=== PATIENT | male | born 1945 | race African-American/Black ===

== ENCOUNTER 2016-08-14 05:00 | Inpatient (IN) ==
--- NOTE | 2016-08-13 09:28 | Cardiothoracic History & Phys ---
History of Present Illness Chief complaint: Chest tightness History of present illness: Mr. Gordon is a 71 year old male who presented to Dr. Page for evaluation of chest discomfort. He has a history of hypertension diabetes and hyperlipidemia and he reports several months of increasing symptoms of mild to moderate chest discomfort which seemed to occur with exertion. He is admitted for cardiac catheterization which demonstrated severe triple-vessel disease and the patient is to be admitted for bypass surgery. Past medical history: Hypertension hyperlipidemia and diabetes. Past surgical history: Appendectomy and tonsillectomy. Family history: There is a strong family history of cerebrovascular disease and a brother has had previous bypass surgery. Social history: Patient has been a smoker most of his life and smokes between one half pack and 1 pack of cigarettes per day. He drinks only occasionally. Review of systems is noncontributory to the present illness. Physical examination: Patient is well-developed well-nourished -[place] man in no acute distress. Examination of head eyes ears nose and throat show the pupils are equal and react to light and extraocular motions are intact. Examination of the oropharynx is benign. Examination of the neck shows no masses and there is no thyromegaly and there are no bruits. Examination of the chest is clear to percussion and auscultation. Examination of the heart shows a regular sinus rhythm without murmurs. Termination of the abdomen shows that it is soft and nontender and there are no masses or organomegaly palpable. Examination extremities shows no cyanosis or edema. Neurological examination is grossly within normal limits. Assessment: Three-vessel coronary artery disease. Plan: Coronary bypass surgery 08/15/2016 Home Medications Medication Instructions Recorded Confirmed Type Aspirin/Calcium Carbonate/Mag 325 mg PO DAILY 08/02/16 08/02/16 History [Aspirin Buffered 325 mg Tab] Carvedilol 12.5 mg PO BID 08/02/16 08/02/16 History Cholecalciferol (Vitamin D3) 1 capsule PO DIRECTED 08/02/16 08/02/16 History [Vitamin D3] Losartan Potassium [Cozaar] 100 mg PO DAILY 08/02/16 08/02/16 History Metformin HCl 2 tablet PO BEDTIME 08/02/16 08/02/16 History Naproxen Sodium [Aleve] 2 tablet PO DAILY 08/02/16 08/02/16 History Pioglitazone [Actos] 45 mg PO DAILY 08/02/16 08/02/16 History Rosuvastatin [Crestor] 20 mg PO BEDTIME 08/02/16 08/02/16 History amLODIPine [Norvasc] 10 mg PO DAILY 08/02/16 08/02/16 History glipiZIDE [Glucotrol] 20 mg PO DAILY 08/02/16 08/02/16 History hydroCHLOROthiazide 25 mg PO DAILY 08/02/16 08/02/16 History [Hydrochlorothiazide] Allergies Allergy/AdvReac Type Severity Reaction Status Date / Time JOSE LUIS Inhibitors Allergy Unknown Verified 08/02/16 06:10 Medical,Surgical,& Family Hx - Medical History Neurology: No history of: Seizures - Social History Smoking Status: Current every day smoker
[2016-08-14] MEDS ORDERED: DEXTROSE 50% 25 GM/50 ML VIAL IV PRN (09:42)
[2016-08-14] MEDS ORDERED: GLUCAGON 1 MG VIAL IM PRN (09:42)
[2016-08-14] MEDS: CARVEDILOL 12.5 MG TABLET PO SCH ×2 (12:23→21:27)
[2016-08-14] MEDS: ROSUVASTATIN 20 MG TABLET PO SCH ×2 (12:37→21:28)
[2016-08-14] MEDS: glipiZIDE 10 MG TABLET PO SCH (12:39)
[2016-08-14] MEDS: PIOGLITAZONE 45 MG TABLET PO SCH (12:39)
[2016-08-14] MEDS: CHLORHEXIDINE 0.12% ORAL RINSE 60 ML BOTTLE SWISH/SPIT SCH ×3 (12:39→21:28)
[2016-08-14] MEDS: ASPIRIN EC 325 MG TABLET PO SCH (12:40)
[2016-08-14] MEDS: amLODIPine 10 MG TABLET PO SCH (12:42)
[2016-08-14] MEDS: hydroCHLOROthiazide 25 MG TABLET PO SCH (12:42)
[2016-08-14] MEDS: LOSARTAN 50 MG TABLET PO SCH (12:42)
[2016-08-14] MEDS: NAPROXEN 250 MG TABLET PO SCH (12:42)
[2016-08-14 12:45] LABS: Basophils % 0.4 % (0.0-0.8); Eosinophils # 0.2 10*3/uL (0.0-0.87); Eosinophils % 2.6 % (0.00-10.9); Hematocrit 37.1 VOL% (42.0-52.0); Hemoglobin 12.3 GM/DL (14.0-18.0); Immature Granulocytes % 0.4 %; Immature Granulocytes Absolute 0.03 #; Lymphocytes # 1.9 10*3/uL (1.4-4.0); Lymphocytes % 26.3 % (21.2-54.2); Mean Corpuscular HGB Conc 33.2 GM/DL (32-36); Mean Corpuscular Hemoglobin 30 PG (27-34); Mean Corpuscular Volume 89.8 FL (87-102); Mean Platelet Volume 9.4 FL (9.6-12.0); Monocytes # 0.6 10*3/uL (0.11-0.8); Monocytes % 8.1 % (1.7-12.7); Neutrophils # 4.5 10*3/uL (1.4-7.4); Neutrophils % 62.2 % (38.7-73.9); Platelet Count 235 T/CUMM (130-400); Red Blood Count 4.13 MC/CUMM (3.8-5.5); Red Cell Distribution Width 16.1 % (9.3-17.3); White Blood Count 7.3 T/CUMM (4-12)
[2016-08-14 13:15] LABS: Albumin 3.8 G/DL (3.4-5.0); Bilirubin,Total 0.4 MG/DL (0.2-1.0); Calcium 9.1 MG/DL (8.5-10.1); Osmolality,Calculated 289.1 MOS/KG (273-304); Potassium 3.6 MMOL/L (3.5-5.1); Total Protein 6.7 G/DL (6.4-8.3)
[2016-08-14] MEDS ORDERED: CLORAZEPATE 3.75 MG TABLET PO PRN (13:26)
--- NOTE | 2016-08-14 13:56 | XRay Report ---
Referring Physician: Timothy Anderson Exam: XR chest 1V portable Date: August 14, 2016 at 10:56 AM Reason: CAD Comparison: Chest one view portable August 02, 2016 Findings: The cardiac silhouette is normal in size. No focal consolidation, pneumothorax or pleural effusion is identified. No acute osseous process is seen. Impression: No acute cardiopulmonary process is identified. PROCEDURE INTERPRETED AT [facility] DEPARTMENT OF RADIOLOGY Final Report Signed by: Dr. Jacques Dial
[2016-08-14] MEDS ORDERED: CLORAZEPATE 7.5 MG TABLET PO ONE (14:00)
--- NOTE | 2016-08-14 15:55 | Hospitalist Consult Note ---
Assessment and Plan - Time spent with patient Time spent with patient: Less than 30 minutes (1) Coronary artery disease Status: Acute Assessment and plan: Mr. Han Gordon is a pleasant 71-year-old -[place] male with history of diabetes, hypertension, dyslipidemia admitted for CABG in the morning by Dr. Anderson. Patient had chest pain on exertion and his workup showed triple-vessel disease. Hospitalist has been consulted to assist with medical management. At this time patient's diabetes is managed with p.o. medicines. These will be held for surgery and put on sliding scale insulin. Will continue to monitor his blood sugars and blood pressures postoperatively. I discussed patient's care with Dr. Mckee the consulting hospitalist Current Visit: Yes (2) Hypertension Status: Acute Current Visit: Yes (3) Diabetes Status: Acute Current Visit: Yes (4) Dyslipidemia Status: Acute Current Visit: Yes History of Present Illness - Data of Consult Patient: new to practice Consult date: 08/14/16 Requesting Physician: Timothy Anderson - Consult Narrative Reason for consult: Medical management History of present illness: Mr. Gordon is a 71-year-old -[place] male with history of hypertension, dyslipidemia, and diabetes admitted by Dr. Anderson for bypass surgery in the a.m. Patient states in June he was working in his yard and he had chest pain with exertion. He went to see his nurse practitioner in [place] and she sent him to Dr. Page for heart workup. He had a heart cath that showed triple- vessel disease. He was referred to Dr. Anderson for bypass surgery. Patient denies headache, chest pain, shortness of breath, abdominal pain, constipation or diarrhea, or lower extremity edema. Patient patient states he has not done anything to exert himself due to the chest pain in the last month or so. Patient's preoperative labs are showing elevated blood sugars in the high 100s. Otherwise they are fairly normal. I discussed patient's care with Dr. Mckee , the consulting hospitalist. CC: Timothy Anderson MD - Home Medications and Allergies Home Medications: Home Medications Medication Instructions Recorded Confirmed Type Aspirin/Calcium Carbonate/Mag 325 mg PO DAILY 08/02/16 08/14/16 History [Aspirin Buffered 325 mg Tab] Carvedilol 12.5 mg PO BID 08/02/16 08/14/16 History Cholecalciferol (Vitamin D3) 1 capsule PO DIRECTED 08/02/16 08/14/16 History [Vitamin D3] Losartan Potassium [Cozaar] 100 mg PO DAILY 08/02/16 08/14/16 History Metformin HCl 2 tablet PO BEDTIME 08/02/16 08/14/16 History Naproxen Sodium [Aleve] 2 tablet PO DAILY 08/02/16 08/14/16 History Pioglitazone [Actos] 45 mg PO DAILY 08/02/16 08/14/16 History Rosuvastatin [Crestor] 20 mg PO BEDTIME 08/02/16 08/14/16 History amLODIPine [Norvasc] 10 mg PO DAILY 08/02/16 08/14/16 History glipiZIDE [Glucotrol] 20 mg PO DAILY 08/02/16 08/14/16 History hydroCHLOROthiazide 25 mg PO DAILY 08/02/16 08/14/16 History [Hydrochlorothiazide] Allergies/Adverse Reactions: Allergies Allergy/AdvReac Type Severity Reaction Status Date / Time JOSE LUIS Inhibitors Allergy Unknown Verified 08/02/16 06:10 Medical,Surgical,& Family Hx - Medical History Cardio: History of: Hypertension Neurology: No history of: Seizures HEENT: History of: Eye Problem (Left eye surgery) Endocrine: History of: Diabetes Mellitus (NIDDM) Rheumatology: No history of;: Fibromyalgia, Gout, Myasthenia Gravis, Psoriasis, Rheumatoid Arthritis, Sjogrens, Systemic Lupus Erythematosus, Rheumatological Problems Respiratory: No history of: Asthma, Bronchitis, COPD, Intubation, Obstructive Sleep Apnea , Pulmonary Embolism, Pulmonary Hypertension, Pneumonia, Lung Cancer, Respiratory Problems Renal: No history of: Renal (Kidney) Cancer, Dialysis, Renal Failure, Renal Problems Genitourinary: No history of: Bladder Problem, Kidney Stones, Prostate Problems, Recurring Urinary Tract Infections, Genitourinary Cancer, Problems Musculoskeletal: No history of: Amputation, Back/Neck Problems, Herniated Disk, Osteoporosis, Musculoskeletal Cancer, Musculoskeletal Problems Hematology: No history of: Blood Transfusion Reaction Other: History of: Anaphylaxis (Tongue swelling related to BP meds 15 years ago) No history of: Anesthesia Reactions, Cancer, Eczema, HIV, Malignant Hyperthermia, MRSA, Vancomycin-Resistant Enterococci, Skin Problems, Miscellaneous Medical Problems - Surgical History Cardiac Surgeries: Sugical HX of: Cardiac Catheterization Thoracic Surgeries: Patient denies;: Organ Transplant, Lobectomy HEENT Surgeries: Surgical HX of: Eye Surgery (cataract surgery), Tonsilectomy & Adenoidectomy Abdominal Surgeries: Surgical HX of: Appendectomy, Colonoscopy Reproductive Surgeries: Patient denies;: Genitourinary Surgery Orthopedic Surgeries: Surgical HX of;: Orthopedic Surgery (Left femur surgery) Patient denies;: Implanted Devices, Spinal Surgery, Total Hip Replacement, Total Knee Replacement - Family History Family History: Reports;: Family Diabetes, Family Heart Disease, Family Stroke ( mother and father) Denies;: Family Anesthesia Reaction, Family Cancer, Family Hematology, Family Hypertension, Family Psychiatric Problems, Additional Family History - Social History Smoking Status: Current every day smoker Frequency of Alcohol Use: Occasionally Type of Drug Use: None Review of systems: A complete 10 system review of systems was obtained and pertinent negatives and positives are in HPI. Exam - Constitutional Vitals: Period Temp Pulse Resp BP Sys/Toussaint Pulse Ox Last 24 Hr 97.8 F 67-71 13-20 163-182/76-99 96-98 Exam: Constitutional System: No distress. No tremulousness. Head: Normocephalic, atraumatic. Ears, Nose and Throat System: No evidence of Otitis or Mastoiditis. No epistaxis or discharge Eyes System: Pupils equal, round, and reactive. Extraocular muscles intact. Neck: Supple, without adenopathy, No jugular venous distention. No thyromegaly, neck mass, or prior surgery apparent. Respiratory System: Chest clear to auscultation. Cardiovascular System: Heart with regular rate and rhythm. No murmur. GI System: Abdomen soft, nontender. Normo active bowel sounds present. Musculoskeletal System: limbs with no pedal edema. Full distal pulses. Neurological System: No discernable sensory deficit. No aphasia Psychiatric System: Conversation is rational Results - Labs CBC & BMP: 08/14/16 12:35 08/14/16 12:35 Lab Results: I have reviewed the past 24 hour labs - EKG EKG results: sinus rhythm - Diagnostic Findings Procedure: Chest x-ray: report reviewed by me (No acute process identified) Quality Measures - VTE Contraindication to Pharmacological VTE Prophylaxis: High Risk of Bleeding
[2016-08-14] MEDS: CHLORHEXIDINE 4% SOLN 118 ML BOTTLE TOP SCH ×2 (17:00→21:30)
[2016-08-14] MEDS: INSULIN LISPRO 100 UNIT/ML SUBCUT SCH (17:05)
[2016-08-14 18:36] LABS: ABG Base Excess 2.7 MMOL/L (-2.5-2.5); ABG HCO3 26.7 MMOL/L (20-26); ABG Oxygen Saturation 95.5 % (95-100); ABG PCO2 44.2 MM HG (35-48); ABG PH 7.407 (7.35-7.45); ABG PO2 79.6 MM HG (80-95); ABG TCO2 24.5 MMOL/L (23-27); Allen Test Positive; Pt O2 Delivery Device Room Air
[2016-08-15] MEDS ORDERED: FAMOTIDINE 20 MG TABLET PO ONE (04:19)
[2016-08-15] MEDS ORDERED: LORazepam 1 MG TABLET PO ONE (04:19)
[2016-08-15] MEDS ORDERED: PAPAVERINE 60 MG/2 ML VIAL ONE (04:35)
[2016-08-15] MEDS ORDERED: VANCOMYCIN 1,000 MG VIAL ONE (04:35)
[2016-08-15] MEDS ORDERED: CEFUROXIME INJ 1,500 MG in SODIUM CHLORIDE 0.9% 100 ML IV ONE (06:00)
[2016-08-15] MEDS ORDERED: MINERAL OIL/PETROLATUM OPH OINT 3.5 GM TUBE ONE (06:40)
[2016-08-15] MEDS ORDERED: NITROGLYCERIN 50 MG/250 ML BOTTLE IV ONE (06:40)
[2016-08-15] MEDS ORDERED: CALCIUM CHLORIDE 1,000 MG/10 ML SYRINGE IV ONE ×2 (06:40→07:44)
[2016-08-15] MEDS ORDERED: PHENYLEPHRINE 20 MG/250 ML PREMIX IV ONE (06:40)
[2016-08-15] MEDS ORDERED: AMINOCAPROIC ACID 5,000 MG/20 ML VIAL IV ONE (06:40)
[2016-08-15] MEDS ORDERED: HEPARIN/NACL 0.9% 2 UNITS/ML 500 ML IV ONE (06:40)
[2016-08-15 07:33] LABS: ABG Base Excess 1.8 MMOL/L (-2.5-2.5); ABG HCO3 25.6 MMOL/L (20-26); ABG Oxygen Saturation 99.3 % (95-100); ABG PCO2 37.1 MM HG (35-48); ABG PH 7.456 (7.35-7.45); ABG PO2 477.4 MM HG (80-95); ABG TCO2 26.7 MMOL/L (23-27); Glucose Heart Surgery 137 MG/DL (74-106); Hemoglobin Heart Surgery 11.4 G/DL (14.0-18.0); Ionized Calcium Arterial 1.12 MMOL/L (1.21-1.46); PCO2 Patient Temp Arterial 37.1 MMHG; PH Patient Temp Arterial 7.456; PO2 Patient Temp Arterial 477.4 MM HG; Patient Temperature 37 CELCIUS; Potassium Heart/CVR 3.2 MMOL/L (3.5-5.1); Sodium Heart/CVR 135 MMOL/L (135-145)
[2016-08-15] MEDS ORDERED: PHENYLEPHRINE DRIP 40 MG/250 ML PREMIX IV ONE (07:44)
[2016-08-15] MEDS ORDERED: NITROPRUSSIDE 50 MG/2 ML VIAL ONE (07:44)
[2016-08-15] MEDS ORDERED: POTASSIUM CHLORIDE RIDER 100 ML IV ONE (07:44)
[2016-08-15] MEDS ORDERED: ALBUMIN 5% 12.5 GM/250 ML VIAL IV ONE ×2 (07:47)
[2016-08-15 08:02] LABS: Apearance,Urine CLEAR (Clear); Bilirubin,Urine Negative (Negative); Blood, Urine Negative (Negative); Glucose,Urine (UA) Negative (Negative); Ketones,Urine Negative (Negative); Mucus,Urine Occasional /LPF (Occasional); Nitrite,Urine Negative (Negative); Protein,Urine Negative; RBC,Urine 1 /HPF (0-4); Squamous Epithelial Cell,Urine Occasional /HPF (0-10); Urine Color Yellow (Yellow); Urine Specific Gravity 1.012 (1.001-1.035); Urine Urobilinogen < 2.0 EU/DL (0.2-1.0); WBC,Urine <1 /HPF (0-6)
[2016-08-15] MEDS ORDERED: SODIUM BICARBONATE 50 MEQ/50 ML SYRINGE IV ONE ×2 (08:21→10:10)
--- NOTE | 2016-08-15 08:32 | Anesthesia ---
Anesthesia Procedures - Arterial Line Consent obtained arterial line: verbal consent Time out performed arterial line: Yes Size (Gauge): 20 Technique used arterial line: guide wire technique Post-Procedure: line sutured into place, dry sterile dressing placed Patient tolerated procedure arterial line: well Complications art line: none Site: left, radial (dr andrea)
--- NOTE | 2016-08-15 08:33 | Anesthesia ---
Anesthesia Procedures - Central Venous Insert Monitors Applied: pulse oximetry, EKG, BP cuff, oxygen via MSBT: pulse oximetry, EKG, BP cuff, oxygen via Procedure: after sterile technique was performed as outlined above, vital signs were stable throughout procedure, no apparent complications were noted, CXR to be obtained and read, , ultrasound guidance was used to identify vessel, 1.5 % lidocaine used to numb skin, 18G introducer needle was passed into vessel under direct visualizatio, 16G introducer needle was passed into vessel under direct visualizatio, 7fr double lumen catheter was passed over guidewire without difficulty, triple lumen catheter was passed over guidewire without difficulty, catheter sutured into place and the ports flushed with NS/hepflush, sterlie dressing applied including the antibiotic disc Ultrasound used: identify patency vessel, visualize needle entry to vessel Vein Cannulated: right internal juglar, left internal juglar (attempted r IJ, easy puncture with blood return, unable to pass guie wire, to ;left side with postive results via dr andrea)
[2016-08-15 08:59] LABS: Hematocrit Heart Surgery 22.9 PERCENT (42-52); Hemoglobin Heart Surgery 7.3 G/DL (14.0-18.0); PH Patient Temp Venous 7.453; Potassium Heart/CVR 3.8 MMOL/L (3.5-5.1); VBG Base Excess 1.5 MEQ/L (0-4); VBG HCO3 25.5 MEQ/L (24-28); VBG Oxygen Saturation 75.8 %; VBG PCO2 39.7 MMHG (41-51); VBG PH 7.424; VBG PO2 41.3 MMHG (17-40)
[2016-08-15 09:30] LABS: Hematocrit Heart Surgery 25.7 PERCENT (42-52); Hemoglobin Heart Surgery 8.3 G/DL (14.0-18.0); PCO2 Patient Temp Venous 38.6 MM HG; PH Patient Temp Venous 7.433; Potassium Heart/CVR 3.8 MMOL/L (3.5-5.1); VBG Base Excess 1.5 MEQ/L (0-4); VBG HCO3 25.4 MEQ/L (24-28); VBG Oxygen Saturation 67.3 %; VBG PCO2 38.6 MMHG (41-51); VBG PH 7.433
[2016-08-15] MEDS: SODIUM CHLORIDE 0.9% 1,000 ML IV SCH ×2 (09:43→09:46)
[2016-08-15] MEDS: INSULIN LISPRO 100 UNIT/ML SUBCUT SCH (09:44)
[2016-08-15] MEDS: CARVEDILOL 12.5 MG TABLET PO SCH (09:44)
[2016-08-15] MEDS: ASPIRIN EC 325 MG TABLET PO SCH (09:44)
[2016-08-15] MEDS: PIOGLITAZONE 45 MG TABLET PO SCH (09:44)
[2016-08-15] MEDS: glipiZIDE 10 MG TABLET PO SCH (09:44)
[2016-08-15] MEDS: LOSARTAN 50 MG TABLET PO SCH (09:44)
[2016-08-15] MEDS: CHLORHEXIDINE 0.12% ORAL RINSE 60 ML BOTTLE SWISH/SPIT SCH ×2 (09:45→21:24)
[2016-08-15] MEDS: hydroCHLOROthiazide 25 MG TABLET PO SCH (09:45)
[2016-08-15] MEDS: CHLORHEXIDINE 4% SOLN 118 ML BOTTLE TOP SCH (09:45)
[2016-08-15] MEDS: NAPROXEN 250 MG TABLET PO SCH (09:45)
[2016-08-15] MEDS: amLODIPine 10 MG TABLET PO SCH (09:45)
[2016-08-15] MEDS ORDERED: DEXTROSE 5% KCL 20 MEQ 20 MEQ/1,000 ML BAG IV ONE (10:10)
[2016-08-15] MEDS ORDERED: PHENYLEPHRINE DRIP 20 MG/250 ML PREMIX IV ONE (10:10)
[2016-08-15] MEDS ORDERED: ALBUMIN 25% 25 GM/100 ML VIAL IV ONE (10:10)
[2016-08-15] MEDS ORDERED: HEPARIN 10,000 UNIT/10 ML VIAL ONE (10:11)
[2016-08-15] MEDS ORDERED: PROTAMINE SULFATE 250 MG/25 ML VIAL IV ONE (10:11)
[2016-08-15] MEDS ORDERED: MANNITOL 12.5 GM/50 ML VIAL IV ONE (10:11)
[2016-08-15] MEDS ORDERED: methylPREDNISolone SOD SUC 1,000 MG/8 ML VIAL ONE (10:11)
[2016-08-15] MEDS ORDERED: FUROSEMIDE 20 MG/2 ML VIAL ONE (10:11)
[2016-08-15] MEDS ORDERED: MAGNESIUM SULFATE 1 GM/2 ML VIAL ONE (10:11)
[2016-08-15] MEDS ORDERED: PROTAMINE SULFATE 50 MG/5 ML VIAL IV ONE ×2 (10:12→11:20)
[2016-08-15] MEDS ORDERED: POTASSIUM CHLORIDE 20 MEQ/10 ML VIAL ONE (10:12)
[2016-08-15 10:24] LABS: ABG Base Excess 0.7 MMOL/L (-2.5-2.5); ABG HCO3 25.1 MMOL/L (20-26); ABG PCO2 34.5 MM HG (35-48); ABG PH 7.455 (7.35-7.45); ABG TCO2 22.5 MMOL/L (23-27); Glucose Heart Surgery 214 MG/DL (74-106); Hematocrit Heart Surgery 25.7 PERCENT (42-52); Hemoglobin Heart Surgery 8.3 G/DL (14.0-18.0); Ionized Calcium Arterial 1.16 MMOL/L (1.21-1.46); PCO2 Patient Temp Arterial 34.5 MMHG; PH Patient Temp Arterial 7.455; Patient Temperature 37 CELCIUS; Potassium Heart/CVR 3.6 MMOL/L (3.5-5.1); Sodium Heart/CVR 134 MMOL/L (135-145)
[2016-08-15] MEDS ORDERED: NITROPRUSSIDE 100 MG in DEXTROSE 5% 250 ML IV PRN (11:06)
[2016-08-15] MEDS ORDERED: MAGNESIUM SULF RIDER 2 GM in PREMIX 1 EACH IV PRN (11:06)
[2016-08-15] MEDS ORDERED: CALCIUM CHLORIDE 1,000 MG/10 ML SYRINGE IV PRN (11:06)
[2016-08-15] MEDS ORDERED: DEXTROSE 50% 25 GM/50 ML VIAL IV PRN ×2 (11:06)
[2016-08-15] MEDS ORDERED: MAGNESIUM SULF RIDER 4 GM in PREMIX 1 EACH IV PRN (11:06)
[2016-08-15] MEDS ORDERED: INSULIN REGULAR 100 UNIT/ML IV ONE (11:06)
[2016-08-15] MEDS ORDERED: ONDANSETRON 4 MG/2 ML VIAL IV PRN (11:06)
[2016-08-15] MEDS ORDERED: VECURONIUM 10 MG VIAL IV PRN ×2 (11:06)
[2016-08-15] MEDS ORDERED: PHENYLEPHRINE DRIP 40 MG/250 ML PREMIX IV PRN (11:06)
[2016-08-15] MEDS ORDERED: INSULIN REGULAR 100 UNIT/ML IV PRN (11:06)
[2016-08-15] MEDS ORDERED: LACTATED RINGERS 250 ML IV PRN (11:06)
[2016-08-15] MEDS ORDERED: ACETAMINOPHEN 650 MG SUPP RECTAL PRN (11:06)
[2016-08-15] MEDS ORDERED: MIDAZOLAM 10 MG/2 ML VIAL IV PRN (11:06)
[2016-08-15] MEDS ORDERED: MORPHINE 10 MG/1 ML VIAL IV PRN (11:06)
[2016-08-15] MEDS ORDERED: MORPHINE 2 MG/1 ML SYRINGE IV PRN (11:06)
[2016-08-15] MEDS ORDERED: MIDAZOLAM 2 MG/2 ML VIAL IV PRN (11:06)
--- NOTE | 2016-08-15 11:12 | Operative Note ---
Date of procedure: 08/15/16 Pre-op diagnosis: coronary artery disease Post-op diagnosis: same Procedure: Procedure: Coronary bypass grafting 2 with the left internal mammary grafted anterior descending coronary artery and saphenous vein grafts to the ramus intermedius coronary artery. Findings: Patient is 71-year-old man who underwent cardiac catheterization as part of an evaluation for chest discomfort and was found to have triple-vessel coronary disease. The time of surgery left ventricular function was noted to be normal and the distal circumflex and the right coronary artery were both totally occluded and not felt suitable for grafting. The graft was placed to a large ramus intermedius which was a normal vessel at the site of anastomosis and to a moderately sized LAD which had a fair amount of disease at the site of anastomosis. Patient tolerated procedure well was returned recovery in satisfactory condition. Procedure: Patient brought to the operating room placed on the operating table in the supine position. After satisfactory induction of general anesthesia the chest abdomen and legs were prepped and draped in sterile fashion. Greater saphenous vein was harvested from the left lower leg and prepared as an arterial graft. Incision leg was closed with 3-0 subcutaneous Monopril and 3-0 subcuticular Monocryl. Standard sternotomy incision was made and the sternum was divided and the heart suspended in a pericardial cradle. The left internal mammary artery was dissected free from its position in the anterior chest wall and prepared as an arterial graft. Patient was prepared for cardiopulmonary bypass with systemic heparinization and cannulation of the ascending aorta and right atrium. Cardiopulmonary bypass was begun the aorta was crossclamped and the heart arrested with cardioplegia solution injected into the aortic root. The heart was protected during the period of crossclamping with topical saline slush. Distal anastomoses were constructed as noted above and then the aorta was unclamped reestablishing cardiac action. And it anastomosis was constructed between the ascending aorta and the inflow end of the saphenous vein graft. Following this the patient was weaned from cardiopulmonary bypass without difficulty. Heparin effect was reversed with protamine and decannulation carried out in the defects in the ascending aorta and right atrium closed with 3-0 Prolene. The operative field was inspected for hemostasis when this was considered adequate the incision was closed with interrupted stainless steel wire and the sternum and 0 Monopril and the presternal fascia. Skin was closed with 3-0 subcuticular Monocryl. 2 chest tubes were left in the anterior mediastinum and brought out through separate stab incisions. Sterile dressings were applied and the patient was returned recovery in satisfactory condition. Anesthesia: ADAIR Surgeon / Physician: Timothy Anderson Estimated blood loss: other (unable to determine because of cardiopulmonary bypass) Condition: stable Disposition: ICU Results - Labs CBC & BMP: 08/15/16 10:07 08/14/16 12:35 Discharge Plan - Discharge Medications No Action Metformin HCl 2 tablet PO BEDTIME glipiZIDE [Glucotrol] 20 mg PO DAILY Naproxen Sodium [Aleve] 2 tablet PO DAILY Rosuvastatin [Crestor] 20 mg PO BEDTIME Carvedilol 12.5 mg PO BID Pioglitazone [Actos] 45 mg PO DAILY hydroCHLOROthiazide [Hydrochlorothiazide] 25 mg PO DAILY Losartan Potassium [Cozaar] 100 mg PO DAILY Aspirin/Calcium Carbonate/Mag [Aspirin Buffered 325 mg Tab] 325 mg PO DAILY amLODIPine [Norvasc] 10 mg PO DAILY Cholecalciferol (Vitamin D3) [Vitamin D3] 1 capsule PO DIRECTED - Follow Up or Referral - Forms/Instructions
[2016-08-15] MEDS ORDERED: SEVOFLURANE 1 UNIT/15 MINUTE INH ONE (11:13)
[2016-08-15] MEDS ORDERED: SODIUM CHLORIDE 0.9% 250 ML IV ONE (11:14)
[2016-08-15] MEDS ORDERED: SODIUM CHLORIDE 0.9% 1,000 ML IV ONE (11:14)
[2016-08-15] MEDS ORDERED: SUFentanil 250 MCG/5 ML AMP ONE (11:14)
[2016-08-15] MEDS ORDERED: SODIUM CHLORIDE 0.45% 1,000 ML IV SCH ×2 (11:30)
[2016-08-15] MEDS ORDERED: INSULIN REGULAR DRIP 100 ML IV SCH (11:30)
[2016-08-15 11:35] LABS: ABG Base Excess 0.9 MMOL/L (-2.5-2.5); ABG HCO3 25.3 MMOL/L (20-26); ABG Oxygen Saturation 98.9 % (95-100); ABG PH 7.437 (7.35-7.45); ABG TCO2 22.7 MMOL/L (23-27); Glucose Heart Surgery 206 MG/DL (74-106); Hematocrit Heart Surgery 30.6 PERCENT (42-52); Hemoglobin Heart Surgery 9.9 G/DL (14.0-18.0); Potassium Heart/CVR 3.6 MMOL/L (3.5-5.1)
[2016-08-15 11:44] LABS: Basophils % 0.2 % (0.0-0.8); Eosinophils # 0.2 10*3/uL (0.0-0.87); Eosinophils % 1.8 % (0.00-10.9); Hematocrit 29.8 VOL% (42.0-52.0); Immature Granulocytes % 0.6 %; Immature Granulocytes Absolute 0.05 #; Lymphocytes # 1.6 10*3/uL (1.4-4.0); Lymphocytes % 18.9 % (21.2-54.2); Mean Corpuscular HGB Conc 32.6 GM/DL (32-36); Mean Corpuscular Hemoglobin 30 PG (27-34); Mean Corpuscular Volume 91.7 FL (87-102); Mean Platelet Volume 9.8 FL (9.6-12.0); Monocytes # 0.6 10*3/uL (0.11-0.8); Monocytes % 6.7 % (1.7-12.7); Neutrophils # 5.9 10*3/uL (1.4-7.4); Neutrophils % 71.8 % (38.7-73.9); Red Cell Distribution Width 16.1 % (9.3-17.3); White Blood Count 8.2 T/CUMM (4-12)
[2016-08-15 11:46] LABS: Hemoglobin 9.7 GM/DL (14.0-18.0); Platelet Count 150 T/CUMM (130-400); Red Blood Count 3.25 MC/CUMM (3.8-5.5)
[2016-08-15] MEDS: KETOROLAC 30 MG/1 ML VIAL IV SCH ×2 (11:55→17:32)
[2016-08-15 11:59] LABS: INR 1.3; PT Patient Result 13.5 SECS; Partial Thromboplastin Time 30.6 SECS (0-40)
[2016-08-15] MEDS: LACTATED RINGERS 1,000 ML IV PRN ×2 (12:00→15:01)
[2016-08-15 12:19] LABS: Albumin 3.3 G/DL (3.4-5.0); Bilirubin,Total 0.7 MG/DL (0.2-1.0); Magnesium 2.2 MG/DL (1.8-2.4); Osmolality,Calculated 282.7 MOS/KG (273-304); Potassium 3.7 MMOL/L (3.5-5.1); Total Protein 5.4 G/DL (6.4-8.3)
[2016-08-15] MEDS: ALBUMIN 5% 12.5 GM in PREMIX 1 EACH IV PRN ×4 (12:37→18:30)
[2016-08-15] MEDS: SODIUM CHLORIDE 0.9% 250 ML IV SCH (12:40)
[2016-08-15] MEDS: POTASSIUM CHLORIDE RIDER 20 MEQ in PREMIX 1 EACH IV PRN ×5 (12:40→23:52)
[2016-08-15 12:41] LABS: Troponin I Only 3.98 NG/ML (0.00-0.045)
[2016-08-15] MEDS: POTASSIUM CHLORIDE RIDER 10 MEQ in PREMIX 1 EACH IV PRN ×2 (12:41→16:50)
--- NOTE | 2016-08-15 12:43 | XRay Report ---
XR chest 1V portable Indication: Line placement Comparison: Chest x-ray dated August 14, 2016 Technique: Single frontal view of the chest Findings: Endotracheal tube tip at the clavicular level. [place] catheter noted. Left-sided central venous catheter tip may be within the azygos vein. Interval sternotomy. Mediastinal drains noted. Mild left basilar atelectasis and possible pleural fluid. Osseous structures appear grossly unchanged. IMPRESSION: Left-sided central venous catheter tip may be within the azygos vein. Interval sternotomy. Mild left basilar atelectasis and possible pleural fluid. PROCEDURE INTERPRETED AT [facility] DEPARTMENT OF RADIOLOGY Final Report Signed by: Dr Russ Persaud
[2016-08-15 14:08] LABS: ABG Base Excess 1.3 MMOL/L (-2.5-2.5); ABG HCO3 25.3 MMOL/L (20-26); ABG Oxygen Saturation 97.1 % (95-100); ABG PCO2 37.9 MM HG (35-48); ABG PH 7.443 (7.35-7.45); ABG PO2 100.7 MM HG (80-95); ABG TCO2 26.5 MMOL/L (23-27); Glucose Heart Surgery 109 MG/DL (74-106); Hemoglobin Heart Surgery 11.3 G/DL (14.0-18.0); Potassium Heart/CVR 3.1 MMOL/L (3.5-5.1)
[2016-08-15 16:04] LABS: ABG Base Excess 0.3 MMOL/L (-2.5-2.5); ABG HCO3 24.8 MMOL/L (20-26); ABG Oxygen Saturation 96.9 % (95-100); ABG PCO2 39.9 MM HG (35-48); ABG PH 7.412 (7.35-7.45); ABG PO2 100.9 MM HG (80-95); ABG TCO2 26.1 MMOL/L (23-27); Glucose Heart Surgery 97 MG/DL (74-106); Hemoglobin Heart Surgery 10.7 G/DL (14.0-18.0); Potassium Heart/CVR 3.7 MMOL/L (3.5-5.1)
[2016-08-15 18:12] LABS: ABG Base Excess -1.1 MMOL/L (-2.5-2.5); ABG HCO3 23.5 MMOL/L (20-26); ABG PCO2 38.6 MM HG (35-48); ABG PH 7.394 (7.35-7.45); ABG PO2 91.7 MM HG (80-95); ABG TCO2 21.6 MMOL/L (23-27); Glucose Heart Surgery 118 MG/DL (74-106); Hemoglobin Heart Surgery 9.7 G/DL (14.0-18.0)
[2016-08-15] MEDS: CEFUROXIME INJ 1,500 MG in SODIUM CHLORIDE 0.9% 100 ML IV SCH (18:26)
[2016-08-15] MEDS ORDERED: FUROSEMIDE 40 MG/4 ML VIAL IV PRN (18:50)
[2016-08-15 19:43] LABS: ABG HCO3 23.6 MMOL/L (20-26); ABG Oxygen Saturation 97.9 % (95-100); ABG PCO2 37.5 MM HG (35-48); ABG PH 7.404 (7.35-7.45); ABG TCO2 21.5 MMOL/L (23-27); Glucose Heart Surgery 120 MG/DL (74-106); Hematocrit Heart Surgery 28.8 PERCENT (42-52); Hemoglobin Heart Surgery 9.3 G/DL (14.0-18.0); Potassium Heart/CVR 3.9 MMOL/L (3.5-5.1)
[2016-08-15 20:30] LABS: Troponin I Only 8.93 NG/ML (0.00-0.045)
[2016-08-15 23:47] LABS: ABG Base Excess -2.2 MMOL/L (-2.5-2.5); ABG HCO3 22.5 MMOL/L (20-26); ABG Oxygen Saturation 97.2 % (95-100); ABG PCO2 41.5 MM HG (35-48); ABG PH 7.355 (7.35-7.45); ABG TCO2 21.1 MMOL/L (23-27); Glucose Heart Surgery 131 MG/DL (74-106); Hematocrit Heart Surgery 32.5 PERCENT (42-52); Hemoglobin Heart Surgery 10.5 G/DL (14.0-18.0); Potassium Heart/CVR 3.7 MMOL/L (3.5-5.1)
[2016-08-16] MEDS: POTASSIUM CHLORIDE RIDER 10 MEQ in PREMIX 1 EACH IV PRN (00:32)
[2016-08-16] MEDS: KETOROLAC 30 MG/1 ML VIAL IV SCH ×2 (00:34→05:05)
[2016-08-16 02:07] LABS: ABG Base Excess -2.7 MMOL/L (-2.5-2.5); ABG HCO3 22.1 MMOL/L (20-26); ABG Oxygen Saturation 97.7 % (95-100); ABG PCO2 40.8 MM HG (35-48); ABG PH 7.352 (7.35-7.45); ABG TCO2 20.5 MMOL/L (23-27); Glucose Heart Surgery 130 MG/DL (74-106); Hematocrit Heart Surgery 33.5 PERCENT (42-52); Hemoglobin Heart Surgery 10.9 G/DL (14.0-18.0); Potassium Heart/CVR 4.2 MMOL/L (3.5-5.1)
[2016-08-16] MEDS: POTASSIUM CHLORIDE RIDER 20 MEQ in PREMIX 1 EACH IV PRN ×2 (02:17→05:04)
[2016-08-16] MEDS: SODIUM CHLORIDE 0.9% 250 ML IV SCH (02:36)
[2016-08-16 03:36] LABS: ABG Base Excess -2.8 MMOL/L (-2.5-2.5); ABG HCO3 22.1 MMOL/L (20-26); ABG Oxygen Saturation 96.4 % (95-100); ABG PCO2 38.7 MM HG (35-48); ABG PH 7.374 (7.35-7.45); ABG PO2 93.3 MM HG (80-95); ABG TCO2 23.3 MMOL/L (23-27); Glucose Heart Surgery 123 MG/DL (74-106); Hemoglobin Heart Surgery 11.4 G/DL (14.0-18.0); Potassium Heart/CVR 4.3 MMOL/L (3.5-5.1)
[2016-08-16 03:39] LABS: Basophils % 0.1 % (0.0-0.8); Hematocrit 32.5 VOL% (42.0-52.0); Hemoglobin 10.8 GM/DL (14.0-18.0); Immature Granulocytes % 0.5 %; Immature Granulocytes Absolute 0.07 #; Lymphocytes # 0.8 10*3/uL (1.4-4.0); Lymphocytes % 6.5 % (21.2-54.2); Mean Corpuscular HGB Conc 33.2 GM/DL (32-36); Mean Corpuscular Hemoglobin 30 PG (27-34); Mean Corpuscular Volume 90.8 FL (87-102); Mean Platelet Volume 10.1 FL (9.6-12.0); Monocytes # 0.8 10*3/uL (0.11-0.8); Monocytes % 6.4 % (1.7-12.7); Neutrophils # 11.2 10*3/uL (1.4-7.4); Neutrophils % 86.5 % (38.7-73.9); Platelet Count 151 T/CUMM (130-400); Red Blood Count 3.58 MC/CUMM (3.8-5.5); Red Cell Distribution Width 16.7 % (9.3-17.3); White Blood Count 12.9 T/CUMM (4-12)
[2016-08-16 04:21] LABS: Albumin 3.7 G/DL (3.4-5.0); Bilirubin,Direct 0.2 MG/DL (0.0-0.20); Bilirubin,Total 0.5 MG/DL (0.2-1.0); Calcium 8.5 MG/DL (8.5-10.1); Magnesium 2.1 MG/DL (1.8-2.4); Osmolality,Calculated 287.1 MOS/KG (273-304); Potassium 4.4 MMOL/L (3.5-5.1); Total Protein 5.9 G/DL (6.4-8.3)
[2016-08-16 04:23] LABS: CKMB % 4.4 %; Troponin I Only 9.06 NG/ML (0.00-0.045)
[2016-08-16 04:52] LABS: ABG Base Excess -3.4 MMOL/L (-2.5-2.5); ABG HCO3 21.6 MMOL/L (20-26); ABG Oxygen Saturation 97.2 % (95-100); ABG PCO2 38.7 MM HG (35-48); ABG PH 7.358 (7.35-7.45); ABG PO2 97.2 MM HG (80-95); ABG TCO2 19.6 MMOL/L (23-27); Glucose Heart Surgery 139 MG/DL (74-106); Hematocrit Heart Surgery 34.2 PERCENT (42-52); Hemoglobin Heart Surgery 11.1 G/DL (14.0-18.0); Potassium Heart/CVR 4.2 MMOL/L (3.5-5.1)
[2016-08-16] MEDS: CEFUROXIME INJ 1,500 MG in SODIUM CHLORIDE 0.9% 100 ML IV SCH (06:11)
--- NOTE | 2016-08-16 07:17 | EKG Report ---
Stationary ECG Study [facility] Test Date: 08/16/2016 7:17:59 AM Pat Name: BRAEDEN FOUNTAIN Department: Room: 104 Gender: M Tow Driver: SARAH : 1945 Requested by: Timothy Dietz Order Number: [id number] Reading MD: VILLA GARAY Intervals [place] Rate: 80 P: 42 MD: 153 QRS: 15 QRSD: 104 T: 39 QT: 370 QTc: 406 Interpretive Statements SINUS RHYTHM ST ELEVATION, CONSIDER ANTEROLATERAL INJURY ACUTE AR Electronically Signed On 08-20-16 08:22:11 CDT by VILLA GARAY [email or web address]
[2016-08-16] MEDS ORDERED: INSULIN LISPRO 100 UNIT/ML SUBCUT SCH (08:00)
--- NOTE | 2016-08-16 08:57 | Cardiothoracic Progress Note ---
Cardiothoracic Subjective Interval history: Patient is awake alert and extubated. His vital signs the been stable through the night he is breathing comfortably this morning. His blood gases are satisfactory postextubation. His heart rate and blood pressure been stable and his urine output is good with a creatinine of 1.30. Cardiac enzymes peaked at a troponin of around 9 and his hemodynamics have been excellent. Chest tube drainage is minimal and his chest tubes are discontinued and hopefully we can transfer him to telemetry later today. Exam (Progress Note) - Constitutional Vitals: Period Temp Pulse Resp BP Sys/Toussaint Pulse Ox Last 24 Hr 97.5 F-98.6 F 71-90 8-19 111-171/56-86 97-100 Result/EKG - Labs CBC & BMP: 08/16/16 03:28 08/16/16 03:28 Labs: Laboratory Results - last 24 hr 08/14/16 08/15/16 08/15/16 12:36 08:55 09:25 WBC RBC Hgb Hct MCV MCH MCHC RDW Plt Count MPV Neut % (Auto) Lymph % (Auto) [place] % (Auto) Eos % (Auto) Baso % (Auto) Neut # (Auto) Lymph # (Auto) [place] # (Auto) Eos # (Auto) Baso # (Auto) Immature Gran % Nucleated RBC % Immature Gran # Nucleated RBCs # INR PT Patient/Control Mix Circ Anticoag PTT Patient Temperature 35 37 ABG pH ABG pH at Pt Temp 7.453 7.433 ABG pCO2 ABG pCO2 at Pt Temp 36.0 38.6 ABG pO2 ABG pO2 at Pt Temp 36.0 36.0 ABG HCO3 ABG Total CO2 ABG O2 Saturation ABG Base Excess ABG Sodium 131 L 133 L VBG pH 7.424 7.433 VBG pCO2 39.7 L 38.6 L VBG pO2 41.3 H 36.0 VBG HCO3 25.5 25.4 VBG Total CO2 24.5 24.1 VBG O2 Saturation 75.8 67.3 VBG Base Excess 1.5 1.5 Hemoglobin 7.3 L 8.3 L Hematocrit 22.9 L 25.7 L Potassium 3.8 3.8 Glucose 291 H 224 H Ionized Calcium FiO2 80.00 80.00 Sodium Chloride Carbon Dioxide Anion Gap BUN Creatinine GFR Calculation BUN/Creatinine Ratio POC Glucose Calculated Osmolality Calcium Venous Ioniz Calcium 1.00 L 1.06 L Magnesium Total Bilirubin Direct Bilirubin AST ALT Alkaline Phosphatase Total Creatine Kinase CK-MB (CK-2) CK and CKMB Interp Troponin I Total Protein Albumin Globulin Albumin/Globulin Ratio Blood Type O POSITIVE Antibody Screen Negative Crossmatch See Detail 08/15/16 08/15/16 08/15/16 10:07 10:18 11:25 WBC 8.2 RBC 3.25 L D Hgb 9.7 L D Hct 29.8 L MCV 91.7 MCH 30 MCHC 32.6 RDW 16.1 Plt Count 90 L D 150 D MPV 9.8 Neut % (Auto) 71.8 Lymph % (Auto) 18.9 L [place] % (Auto) 6.7 Eos % (Auto) 1.8 Baso % (Auto) 0.2 Neut # (Auto) 5.9 Lymph # (Auto) 1.6 [place] # (Auto) 0.6 Eos # (Auto) 0.2 Baso # (Auto) 0.0 Immature Gran % 0.6 Nucleated RBC % 0.0 Immature Gran # 0.05 Nucleated RBCs # 0.00 INR PT Patient/Control Mix Circ Anticoag PTT Patient Temperature 37 ABG pH 7.455 H ABG pH at Pt Temp 7.455 ABG pCO2 34.5 L ABG pCO2 at Pt Temp 34.5 ABG pO2 367.0 H ABG pO2 at Pt Temp 367.0 ABG HCO3 25.1 ABG Total CO2 22.5 L ABG O2 Saturation 100.0 ABG Base Excess 0.7 ABG Sodium 134 L VBG pH VBG pCO2 VBG pO2 VBG HCO3 VBG Total CO2 VBG O2 Saturation VBG Base Excess Hemoglobin 8.3 L Hematocrit 25.7 L Potassium 3.6 Glucose 214 H Ionized Calcium 1.16 L FiO2 Sodium Chloride Carbon Dioxide Anion Gap BUN Creatinine GFR Calculation BUN/Creatinine Ratio POC Glucose Calculated Osmolality Calcium Venous Ioniz Calcium Magnesium Total Bilirubin Direct Bilirubin AST ALT Alkaline Phosphatase Total Creatine Kinase CK-MB (CK-2) CK and CKMB Interp Troponin I Total Protein Albumin Globulin Albumin/Globulin Ratio Blood Type Antibody Screen Crossmatch 08/15/16 08/15/16 08/15/16 11:25 11:25 11:25 WBC RBC Hgb Hct MCV MCH MCHC RDW Plt Count MPV Neut % (Auto) Lymph % (Auto) [place] % (Auto) Eos % (Auto) Baso % (Auto) Neut # (Auto) Lymph # (Auto) [place] # (Auto) Eos # (Auto) Baso # (Auto) Immature Gran % Nucleated RBC % Immature Gran # Nucleated RBCs # INR 1.3 PT Patient/Control Mix 13.5 D Circ Anticoag PTT 30.6 Patient Temperature ABG pH 7.437 ABG pH at Pt Temp ABG pCO2 37.0 ABG pCO2 at Pt Temp ABG pO2 138.0 H ABG pO2 at Pt Temp ABG HCO3 25.3 ABG Total CO2 22.7 L ABG O2 Saturation 98.9 ABG Base Excess 0.9 ABG Sodium VBG pH VBG pCO2 VBG pO2 VBG HCO3 VBG Total CO2 VBG O2 Saturation VBG Base Excess Hemoglobin 9.9 L Hematocrit 30.6 L Potassium 3.7 3.6 Glucose 199 H 206 H Ionized Calcium FiO2 Sodium 138 Chloride 103 Carbon Dioxide 25 Anion Gap 13.7 BUN 17 Creatinine 1.20 GFR Calculation 97 BUN/Creatinine Ratio 14.00 POC Glucose Calculated Osmolality 282.7 Calcium 9.0 Venous Ioniz Calcium Magnesium 2.2 Total Bilirubin 0.70 Direct Bilirubin AST 27 ALT 14 L Alkaline Phosphatase 45 Total Creatine Kinase CK-MB (CK-2) CK and CKMB Interp Troponin I Total Protein 5.4 L Albumin 3.3 L Globulin 2.1 L Albumin/Globulin Ratio 1.5 Blood Type Antibody Screen Crossmatch 08/15/16 08/15/16 08/15/16 12:06 12:20 13:04 WBC RBC Hgb Hct MCV MCH MCHC RDW Plt Count MPV Neut % (Auto) Lymph % (Auto) [place] % (Auto) Eos % (Auto) Baso % (Auto) Neut # (Auto) Lymph # (Auto) [place] # (Auto) Eos # (Auto) Baso # (Auto) Immature Gran % Nucleated RBC % Immature Gran # Nucleated RBCs # INR PT Patient/Control Mix Circ Anticoag PTT Patient Temperature ABG pH ABG pH at Pt Temp ABG pCO2 ABG pCO2 at Pt Temp ABG pO2 ABG pO2 at Pt Temp ABG HCO3 ABG Total CO2 ABG O2 Saturation ABG Base Excess ABG Sodium VBG pH VBG pCO2 VBG pO2 VBG HCO3 VBG Total CO2 VBG O2 Saturation VBG Base Excess Hemoglobin Hematocrit Potassium Glucose Ionized Calcium FiO2 Sodium Chloride Carbon Dioxide Anion Gap BUN Creatinine GFR Calculation BUN/Creatinine Ratio POC Glucose 207 H 151 H Calculated Osmolality Calcium Venous Ioniz Calcium Magnesium Total Bilirubin Direct Bilirubin AST ALT Alkaline Phosphatase Total Creatine Kinase 275 CK-MB (CK-2) 13.7 H CK and CKMB Interp 5.0 Troponin I 3.980 H Total Protein Albumin Globulin Albumin/Globulin Ratio Blood Type Antibody Screen Crossmatch 08/15/16 08/15/16 08/15/16 14:05 15:01 15:57 WBC RBC Hgb Hct MCV MCH MCHC RDW Plt Count MPV Neut % (Auto) Lymph % (Auto) [place] % (Auto) Eos % (Auto) Baso % (Auto) Neut # (Auto) Lymph # (Auto) [place] # (Auto) Eos # (Auto) Baso # (Auto) Immature Gran % Nucleated RBC % Immature Gran # Nucleated RBCs # INR PT Patient/Control Mix Circ Anticoag PTT Patient Temperature ABG pH 7.443 7.412 ABG pH at Pt Temp ABG pCO2 37.9 39.9 ABG pCO2 at Pt Temp ABG pO2 100.7 H 100.9 H ABG pO2 at Pt Temp ABG HCO3 25.3 24.8 ABG Total CO2 26.5 26.1 ABG O2 Saturation 97.1 96.9 ABG Base Excess 1.3 0.3 ABG Sodium VBG pH VBG pCO2 VBG pO2 VBG HCO3 VBG Total CO2 VBG O2 Saturation VBG Base Excess Hemoglobin 11.3 L 10.7 L Hematocrit 33.0 L 31.0 L Potassium 3.1 L 3.7 Glucose 109 H 97 Ionized Calcium FiO2 Sodium Chloride Carbon Dioxide Anion Gap BUN Creatinine GFR Calculation BUN/Creatinine Ratio POC Glucose 83 Calculated Osmolality Calcium Venous Ioniz Calcium Magnesium Total Bilirubin Direct Bilirubin AST ALT Alkaline Phosphatase Total Creatine Kinase CK-MB (CK-2) CK and CKMB Interp Troponin I Total Protein Albumin Globulin Albumin/Globulin Ratio Blood Type Antibody Screen Crossmatch 08/15/16 08/15/16 08/15/16 17:03 18:07 19:03 WBC RBC Hgb Hct MCV MCH MCHC RDW Plt Count MPV Neut % (Auto) Lymph % (Auto) [place] % (Auto) Eos % (Auto) Baso % (Auto) Neut # (Auto) Lymph # (Auto) [place] # (Auto) Eos # (Auto) Baso # (Auto) Immature Gran % Nucleated RBC % Immature Gran # Nucleated RBCs # INR PT Patient/Control Mix Circ Anticoag PTT Patient Temperature ABG pH 7.394 ABG pH at Pt Temp ABG pCO2 38.6 ABG pCO2 at Pt Temp ABG pO2 91.7 ABG pO2 at Pt Temp ABG HCO3 23.5 ABG Total CO2 21.6 L ABG O2 Saturation 97.0 ABG Base Excess -1.1 ABG Sodium VBG pH VBG pCO2 VBG pO2 VBG HCO3 VBG Total CO2 VBG O2 Saturation VBG Base Excess Hemoglobin 9.7 L Hematocrit 30.0 L Potassium 4.0 Glucose 118 H Ionized Calcium FiO2 Sodium Chloride Carbon Dioxide Anion Gap BUN Creatinine GFR Calculation BUN/Creatinine Ratio POC Glucose 128 H 111 H Calculated Osmolality Calcium Venous Ioniz Calcium Magnesium Total Bilirubin Direct Bilirubin AST ALT Alkaline Phosphatase Total Creatine Kinase CK-MB (CK-2) CK and CKMB Interp Troponin I Total Protein Albumin Globulin Albumin/Globulin Ratio Blood Type Antibody Screen Crossmatch 08/15/16 08/15/16 08/15/16 19:39 19:40 21:06 WBC RBC Hgb Hct MCV MCH MCHC RDW Plt Count MPV Neut % (Auto) Lymph % (Auto) [place] % (Auto) Eos % (Auto) Baso % (Auto) Neut # (Auto) Lymph # (Auto) [place] # (Auto) Eos # (Auto) Baso # (Auto) Immature Gran % Nucleated RBC % Immature Gran # Nucleated RBCs # INR PT Patient/Control Mix Circ Anticoag PTT Patient Temperature ABG pH 7.404 ABG pH at Pt Temp ABG pCO2 37.5 ABG pCO2 at Pt Temp ABG pO2 108.0 H ABG pO2 at Pt Temp ABG HCO3 23.6 ABG Total CO2 21.5 L ABG O2 Saturation 97.9 ABG Base Excess -1.0 ABG Sodium VBG pH VBG pCO2 VBG pO2 VBG HCO3 VBG Total CO2 VBG O2 Saturation VBG Base Excess Hemoglobin 9.3 L Hematocrit 28.8 L Potassium 3.9 Glucose 120 H Ionized Calcium FiO2 Sodium Chloride Carbon Dioxide Anion Gap BUN Creatinine GFR Calculation BUN/Creatinine Ratio POC Glucose 128 H Calculated Osmolality Calcium Venous Ioniz Calcium Magnesium Total Bilirubin Direct Bilirubin AST ALT Alkaline Phosphatase Total Creatine Kinase 419 H D CK-MB (CK-2) 16.9 H CK and CKMB Interp 4.0 Troponin I 8.930 H D Total Protein Albumin Globulin Albumin/Globulin Ratio Blood Type Antibody Screen Crossmatch 08/15/16 08/15/16 08/15/16 22:11 23:04 23:39 WBC RBC Hgb Hct MCV MCH MCHC RDW Plt Count MPV Neut % (Auto) Lymph % (Auto) [place] % (Auto) Eos % (Auto) Baso % (Auto) Neut # (Auto) Lymph # (Auto) [place] # (Auto) Eos # (Auto) Baso # (Auto) Immature Gran % Nucleated RBC % Immature Gran # Nucleated RBCs # INR PT Patient/Control Mix Circ Anticoag PTT Patient Temperature ABG pH 7.355 ABG pH at Pt Temp ABG pCO2 41.5 ABG pCO2 at Pt Temp ABG pO2 101.0 H ABG pO2 at Pt Temp ABG HCO3 22.5 ABG Total CO2 21.1 L ABG O2 Saturation 97.2 ABG Base Excess -2.2 ABG Sodium VBG pH VBG pCO2 VBG pO2 VBG HCO3 VBG Total CO2 VBG O2 Saturation VBG Base Excess Hemoglobin 10.5 L Hematocrit 32.5 L Potassium 3.7 Glucose 131 H Ionized Calcium FiO2 Sodium Chloride Carbon Dioxide Anion Gap BUN Creatinine GFR Calculation BUN/Creatinine Ratio POC Glucose 125 H 123 H Calculated Osmolality Calcium Venous Ioniz Calcium Magnesium Total Bilirubin Direct Bilirubin AST ALT Alkaline Phosphatase Total Creatine Kinase CK-MB (CK-2) CK and CKMB Interp Troponin I Total Protein Albumin Globulin Albumin/Globulin Ratio Blood Type Antibody Screen Crossmatch 08/16/16 08/16/16 08/16/16 01:09 01:58 03:28 WBC RBC Hgb Hct MCV MCH MCHC RDW Plt Count MPV Neut % (Auto) Lymph % (Auto) [place] % (Auto) Eos % (Auto) Baso % (Auto) Neut # (Auto) Lymph # (Auto) [place] # (Auto) Eos # (Auto) Baso # (Auto) Immature Gran % Nucleated RBC % Immature Gran # Nucleated RBCs # INR PT Patient/Control Mix Circ Anticoag PTT Patient Temperature ABG pH 7.352 ABG pH at Pt Temp ABG pCO2 40.8 ABG pCO2 at Pt Temp ABG pO2 108.0 H ABG pO2 at Pt Temp ABG HCO3 22.1 ABG Total CO2 20.5 L ABG O2 Saturation 97.7 ABG Base Excess -2.7 L ABG Sodium VBG pH VBG pCO2 VBG pO2 VBG HCO3 VBG Total CO2 VBG O2 Saturation VBG Base Excess Hemoglobin 10.9 L Hematocrit 33.5 L Potassium 4.2 Glucose 130 H Ionized Calcium FiO2 Sodium Chloride Carbon Dioxide Anion Gap BUN Creatinine GFR Calculation BUN/Creatinine Ratio POC Glucose 134 H Calculated Osmolality Calcium Venous Ioniz Calcium Magnesium Total Bilirubin Direct Bilirubin AST ALT Alkaline Phosphatase Total Creatine Kinase 539 H D CK-MB (CK-2) 23.6 H D CK and CKMB Interp 4.4 Troponin I 9.060 H Total Protein Albumin Globulin Albumin/Globulin Ratio Blood Type Antibody Screen Crossmatch 08/16/16 08/16/16 08/16/16 03:28 03:28 03:28 WBC 12.9 H D RBC 3.58 L Hgb 10.8 L Hct 32.5 L MCV 90.8 MCH 30 MCHC 33.2 RDW 16.7 Plt Count 151 MPV 10.1 Neut % (Auto) 86.5 H Lymph % (Auto) 6.5 L [place] % (Auto) 6.4 Eos % (Auto) 0.0 Baso % (Auto) 0.1 Neut # (Auto) 11.2 H Lymph # (Auto) 0.8 L [place] # (Auto) 0.8 Eos # (Auto) 0.0 Baso # (Auto) 0.0 Immature Gran % 0.5 Nucleated RBC % 0.0 Immature Gran # 0.07 Nucleated RBCs # 0.00 INR PT Patient/Control Mix Circ Anticoag PTT Patient Temperature ABG pH 7.374 ABG pH at Pt Temp ABG pCO2 38.7 ABG pCO2 at Pt Temp ABG pO2 93.3 ABG pO2 at Pt Temp ABG HCO3 22.1 ABG Total CO2 23.3 ABG O2 Saturation 96.4 ABG Base Excess -2.8 L ABG Sodium VBG pH VBG pCO2 VBG pO2 VBG HCO3 VBG Total CO2 VBG O2 Saturation VBG Base Excess Hemoglobin 11.4 L Hematocrit 34.0 L Potassium 4.4 4.3 Glucose 123 H 123 H Ionized Calcium FiO2 Sodium 142 Chloride 109 H Carbon Dioxide 25 Anion Gap 12.4 BUN 23 H Creatinine 1.30 GFR Calculation 88 BUN/Creatinine Ratio 17.00 POC Glucose Calculated Osmolality 287.1 Calcium 8.5 Venous Ioniz Calcium Magnesium 2.1 Total Bilirubin 0.50 Direct Bilirubin 0.2 AST 58 H ALT 18 Alkaline Phosphatase 44 L Total Creatine Kinase CK-MB (CK-2) CK and CKMB Interp Troponin I Total Protein 5.9 L Albumin 3.7 Globulin 2.2 L Albumin/Globulin Ratio 1.6 Blood Type Antibody Screen Crossmatch 08/16/16 08/16/16 08/16/16 04:51 06:15 07:04 WBC RBC Hgb Hct MCV MCH MCHC RDW Plt Count MPV Neut % (Auto) Lymph % (Auto) [place] % (Auto) Eos % (Auto) Baso % (Auto) Neut # (Auto) Lymph # (Auto) [place] # (Auto) Eos # (Auto) Baso # (Auto) Immature Gran % Nucleated RBC % Immature Gran # Nucleated RBCs # INR PT Patient/Control Mix Circ Anticoag PTT Patient Temperature ABG pH 7.358 ABG pH at Pt Temp ABG pCO2 38.7 ABG pCO2 at Pt Temp ABG pO2 97.2 H ABG pO2 at Pt Temp ABG HCO3 21.6 ABG Total CO2 19.6 L ABG O2 Saturation 97.2 ABG Base Excess -3.4 L ABG Sodium VBG pH VBG pCO2 VBG pO2 VBG HCO3 VBG Total CO2 VBG O2 Saturation VBG Base Excess Hemoglobin 11.1 L Hematocrit 34.2 L Potassium 4.2 Glucose 139 H Ionized Calcium FiO2 Sodium Chloride Carbon Dioxide Anion Gap BUN Creatinine GFR Calculation BUN/Creatinine Ratio POC Glucose 135 H 128 H Calculated Osmolality Calcium Venous Ioniz Calcium Magnesium Total Bilirubin Direct Bilirubin AST ALT Alkaline Phosphatase Total Creatine Kinase CK-MB (CK-2) CK and CKMB Interp Troponin I Total Protein Albumin Globulin Albumin/Globulin Ratio Blood Type Antibody Screen Crossmatch Quality Measures - VTE Contraindication to Pharmacological VTE Prophylaxis: High Risk of Bleeding
[2016-08-16] MEDS ORDERED: DEXTROSE 50% 25 GM/50 ML VIAL IV PRN ×2 (09:02)
[2016-08-16] MEDS ORDERED: ACETAMINOPHEN 325 MG TABLET PO PRN (09:02)
[2016-08-16] MEDS ORDERED: MAGNESIUM SULF RIDER 2 GM in PREMIX 1 EACH IV PRN (09:02)
[2016-08-16] MEDS ORDERED: GLUCAGON 1 MG VIAL IM PRN ×2 (09:02)
[2016-08-16] MEDS ORDERED: MAGNESIUM HYDROXIDE SUSP 30 ML UDCUP PO PRN (09:02)
[2016-08-16] MEDS ORDERED: MAGNESIUM SULF RIDER 4 GM in PREMIX 1 EACH IV PRN (09:02)
[2016-08-16] MEDS ORDERED: ALUMINUM/MAGNES/SIMETH MAX STR 30 ML UDCUP PO PRN (09:02)
[2016-08-16] MEDS ORDERED: MORPHINE 2 MG/1 ML SYRINGE IV PRN (09:02)
[2016-08-16] MEDS ORDERED: POTASSIUM CHLORIDE 20 MEQ TABLET PO PRN (09:02)
[2016-08-16] MEDS ORDERED: oxyCODONE/ACETAMINOPHEN 5-325 MG TABLET PO PRN (09:02)
[2016-08-16] MEDS ORDERED: ZALEPLON 5 MG CAPSULE PO PRN (09:02)
[2016-08-16] MEDS ORDERED: ONDANSETRON 4 MG/2 ML VIAL IV PRN (09:02)
[2016-08-16] MEDS: CHLORHEXIDINE 0.12% ORAL RINSE 60 ML BOTTLE SWISH/SPIT SCH (09:08)
--- NOTE | 2016-08-16 09:44 | XRay Report ---
History is post chest tube removal Comparison 08/15/2016 The heart is enlarged. ET tube and the [place]-Palak catheters and anterior chest tube is been removed in the interval No pneumothorax or other new areas of consolidation seen Left base is underpenetrated Left central line tip remains at the azygos arch. Impression: Interval removal of support devices otherwise little change PROCEDURE INTERPRETED AT [facility] DEPARTMENT OF RADIOLOGY Final Report Signed by: Dr. Jing John
--- NOTE | 2016-08-16 10:23 | Hospitalist Progress Note ---
Assessment and Plan (1) Coronary artery disease Status: Acute Assessment and plan: Continue routine postop care by cardiothoracic surgery. Resume home medications. We will continue to follow the patient with you for medical management of his hypertension and diabetes. Current Visit: Yes (2) Hypertension Status: Acute Current Visit: Yes (3) Diabetes Status: Acute Assessment and plan: Insulin drip stopped this morning. Home medications resumed. Continue to follow Accu-Cheks every 4 hours and cover with sliding scale insulin. Current Visit: Yes Qualifiers: Diabetes mellitus type: type 2 (4) Dyslipidemia Status: Chronic Current Visit: Yes Hospitalist: Subjective Interval history: Patient seen and examined. Case discussed with nursing staff at the bedside. Patient seen in CVR. Blood pressure controlled with nitride drip. Chest tubes removed and pain controlled. Postoperative changes noted and dressings are clean and dry and intact. All medications being resumed. Blood sugars 130s. Exam - Constitutional Vitals: Period Temp Pulse Resp BP Sys/Toussaint Pulse Ox Last 24 Hr 97.5 F-98.6 F 71-90 8-19 111-171/56-86 97-100 Exam: Constitutional System: No distress. [No] tremulousness. Head: Normocephalic, atraumatic. Ears, Nose and Throat System: No pain or tenderness. No epistaxis or discharge Eyes System: Pupils equal, round, and reactive. Extraocular muscles intact. Neck: Supple, without adenopathy, [No] jugular venous distention. No thyromegaly , neck mass, or prior surgery apparent. Respiratory System: Chest [clear] to auscultation. Cardiovascular System: Heart with [regular] rate and rhythm. [No] murmur. GI System: Abdomen [soft], [non]tender. [Normo]active bowel sounds present. Musculoskeletal System: limbs with [no] pedal edema. [Full] distal pulses. Left lower extremity with vein harvesting site clean dry and intact. Neurological System: [No discernable] sensory deficit. [No] aphasia Psychiatric System: Conversation is [rational] Results - Labs CBC & BMP: 08/16/16 03:28 08/16/16 03:28 Lab Results: I have reviewed the past 24 hour labs Quality Measures - VTE Contraindication to Pharmacological VTE Prophylaxis: High Risk of Bleeding Specialty Discharge - Follow Up or Referrals
[2016-08-16] MEDS: SODIUM CHLOR 0.45% KCL 20 MEQ 20 MEQ/1,000 ML BAG IV SCH ×2 (11:09→11:17)
--- NOTE | 2016-08-16 12:50 | Anesthesia ---
Anesthesia Post OP - Post Ansesthetic Evaluation Patient seen in post op: Yes Resp: within normal limits CV: within normal limits Mental: within normal limits Temp: within normal limits [id number]: within normal limits Nausea and Vomiting: within normal limits Pain: within normal limits
[2016-08-16] MEDS: INSULIN LISPRO 100 UNIT/ML SUBCUT SCH ×4 (13:20→20:30)
[2016-08-16] MEDS: CARVEDILOL 12.5 MG TABLET PO SCH (21:36)
[2016-08-16] MEDS: metFORMIN 500 MG TABLET PO SCH (21:36)
[2016-08-16] MEDS: ROSUVASTATIN 20 MG TABLET PO SCH (21:36)
[2016-08-17 03:56] LABS: Basophils % 0.1 % (0.0-0.8); Hematocrit 33.7 VOL% (42.0-52.0); Immature Granulocytes % 0.8 %; Immature Granulocytes Absolute 0.12 #; Lymphocytes # 0.9 10*3/uL (1.4-4.0); Lymphocytes % 6.6 % (21.2-54.2); Mean Corpuscular HGB Conc 32.6 GM/DL (32-36); Mean Corpuscular Hemoglobin 30 PG (27-34); Mean Corpuscular Volume 90.8 FL (87-102); Mean Platelet Volume 10.9 FL (9.6-12.0); Neutrophils # 11.2 10*3/uL (1.4-7.4); Neutrophils % 78.5 % (38.7-73.9); Platelet Count 150 T/CUMM (130-400); Red Blood Count 3.71 MC/CUMM (3.8-5.5); Red Cell Distribution Width 16.9 % (9.3-17.3); White Blood Count 14.3 T/CUMM (4-12)
[2016-08-17 04:38] LABS: Albumin 3.4 G/DL (3.4-5.0); Bilirubin,Direct 0.1 MG/DL (0.0-0.20); Bilirubin,Total 1.1 MG/DL (0.2-1.0); CKMB % 1.9 %; Calcium 8.6 MG/DL (8.5-10.1); Magnesium 2.4 MG/DL (1.8-2.4); Osmolality,Calculated 291.4 MOS/KG (273-304); Potassium 4.5 MMOL/L (3.5-5.1); Total Protein 5.9 G/DL (6.4-8.3)
[2016-08-17 04:39] LABS: Troponin I Only 4.89 NG/ML (0.00-0.045)
[2016-08-17] MEDS: INSULIN LISPRO 100 UNIT/ML SUBCUT SCH ×6 (04:57→21:20)
[2016-08-17] MEDS: CHLORHEXIDINE 0.12% ORAL RINSE 60 ML BOTTLE SWISH/SPIT SCH ×3 (04:58→21:22)
[2016-08-17] MEDS ORDERED: FUROSEMIDE 40 MG/4 ML VIAL IV ONE (06:00)
--- NOTE | 2016-08-17 07:34 | XRay Report ---
History short of breath Comparison 08/16/2016 The heart is mildly enlarged. Left central line tip remains at the azygos arch The left base remains underpenetrated. No new areas of infiltrate or pneumothorax seen. Impression: No interval change PROCEDURE INTERPRETED AT [facility] DEPARTMENT OF RADIOLOGY Final Report Signed by: Dr. Jing John
[2016-08-17] MEDS ORDERED: ERGOCALCIFEROL 50,000 UNIT CAPSULE PO SCH ×2 (09:00)
--- NOTE | 2016-08-17 09:05 | Cardiothoracic Progress Note ---
Cardiothoracic Subjective Interval history: Patient looks and feels okay. His vital signs have been stable and is breathing comfortably. He is running a sinus tachycardia with a heart rate in the mid 90s. I am going to increase his Coreg from 12-1/2-25 mg twice daily. Otherwise we will continue to increase his activity according to routine postoperative protocol and overall his progress appears satisfactory. Exam (Progress Note) - Constitutional Vitals: Period Temp Pulse Resp BP Sys/Toussaint Pulse Ox Last 24 Hr 0 F-98.8 F 84-105 16-22 117-162/63-87 Result/EKG - Labs CBC & BMP: 08/17/16 03:20 08/17/16 03:20 Labs: Laboratory Results - last 24 hr 08/16/16 08/16/16 08/16/16 12:44 16:23 19:48 WBC RBC Hgb Hct MCV MCH MCHC RDW Plt Count MPV Neut % (Auto) Lymph % (Auto) [place] % (Auto) Eos % (Auto) Baso % (Auto) Neut # (Auto) Lymph # (Auto) [place] # (Auto) Eos # (Auto) Baso # (Auto) Immature Gran % Nucleated RBC % Immature Gran # Nucleated RBCs # Sodium Potassium Chloride Carbon Dioxide Anion Gap BUN Creatinine GFR Calculation BUN/Creatinine Ratio Glucose POC Glucose 280 H 282 H 438 H Calculated Osmolality Calcium Magnesium Total Bilirubin Direct Bilirubin Indirect Bilirubin AST ALT Alkaline Phosphatase Total Creatine Kinase CK-MB (CK-2) CK and CKMB Interp Troponin I Total Protein Albumin Globulin Albumin/Globulin Ratio 08/16/16 08/17/16 08/17/16 22:33 03:20 03:20 WBC 14.3 H RBC 3.71 L Hgb 11.0 L Hct 33.7 L MCV 90.8 MCH 30 MCHC 32.6 RDW 16.9 Plt Count 150 MPV 10.9 Neut % (Auto) 78.5 H Lymph % (Auto) 6.6 L [place] % (Auto) 14.0 H Eos % (Auto) 0.0 Baso % (Auto) 0.1 Neut # (Auto) 11.2 H Lymph # (Auto) 0.9 L [place] # (Auto) 2.0 H Eos # (Auto) 0.0 Baso # (Auto) 0.0 Immature Gran % 0.8 Nucleated RBC % 0.0 Immature Gran # 0.12 Nucleated RBCs # 0.00 Sodium 140 Potassium 4.5 Chloride 105 Carbon Dioxide 26 Anion Gap 13.5 BUN 31 H Creatinine 1.40 H GFR Calculation 82 BUN/Creatinine Ratio 22.00 H Glucose 201 H POC Glucose 296 H Calculated Osmolality 291.4 Calcium 8.6 Magnesium 2.4 Total Bilirubin 1.10 H Direct Bilirubin 0.1 Indirect Bilirubin 1.0 AST 37 ALT 20 Alkaline Phosphatase 48 Total Creatine Kinase 373 H D CK-MB (CK-2) 7.0 H D CK and CKMB Interp 1.9 Troponin I 4.890 H D Total Protein 5.9 L Albumin 3.4 Globulin 2.5 Albumin/Globulin Ratio 1.3 08/17/16 08/17/16 08/17/16 04:34 06:29 07:11 WBC RBC Hgb Hct MCV MCH MCHC RDW Plt Count MPV Neut % (Auto) Lymph % (Auto) [place] % (Auto) Eos % (Auto) Baso % (Auto) Neut # (Auto) Lymph # (Auto) [place] # (Auto) Eos # (Auto) Baso # (Auto) Immature Gran % Nucleated RBC % Immature Gran # Nucleated RBCs # Sodium Potassium Chloride Carbon Dioxide Anion Gap BUN Creatinine GFR Calculation BUN/Creatinine Ratio Glucose POC Glucose 223 H 248 H 248 H Calculated Osmolality Calcium Magnesium Total Bilirubin Direct Bilirubin Indirect Bilirubin AST ALT Alkaline Phosphatase Total Creatine Kinase CK-MB (CK-2) CK and CKMB Interp Troponin I Total Protein Albumin Globulin Albumin/Globulin Ratio Quality Measures - VTE Contraindication to Pharmacological VTE Prophylaxis: High Risk of Bleeding Specialty Discharge - Follow Up or Referrals
[2016-08-17] MEDS: ASPIRIN EC 325 MG TABLET PO SCH (10:12)
[2016-08-17] MEDS: PIOGLITAZONE 45 MG TABLET PO SCH (10:12)
[2016-08-17] MEDS: NAPROXEN 500 MG TABLET PO SCH (10:12)
[2016-08-17] MEDS: amLODIPine 10 MG TABLET PO SCH (10:12)
[2016-08-17] MEDS: hydroCHLOROthiazide 25 MG TABLET PO SCH (10:12)
[2016-08-17] MEDS: glipiZIDE 10 MG TABLET PO SCH (10:12)
[2016-08-17] MEDS: PANTOPRAZOLE 40 MG TABLET PO SCH (10:13)
[2016-08-17] MEDS: FERROUS SULFATE 325 MG TABLET PO SCH (10:13)
[2016-08-17] MEDS: LOSARTAN 50 MG TABLET PO SCH (10:13)
[2016-08-17] MEDS: CARVEDILOL 25 MG TABLET PO SCH ×2 (10:13→21:20)
[2016-08-17] MEDS: DOCUSATE SODIUM 100 MG CAPSULE PO SCH (10:13)
[2016-08-17] MEDS: CARVEDILOL 12.5 MG TABLET PO SCH (13:05)
--- NOTE | 2016-08-17 14:04 | Hospitalist Progress Note ---
Assessment and Plan - Time spent with patient Time spent with patient: Greater than 30 minutes (1) Coronary artery disease Status: Acute Assessment and plan: Status post CABG defer to primary. Current Visit: Yes (2) Diabetes Status: Acute Assessment and plan: Continue current management. Current Visit: Yes Qualifiers: Diabetes mellitus type: type 2 (3) Hypertension Status: Acute Assessment and plan: Continue current management. Current Visit: Yes (4) Dyslipidemia Status: Chronic Assessment and plan: Continue current management. Current Visit: Yes Hospitalist: Subjective Interval history: Status post CABG. Reports no problems. No complaints no overnight events. Exam - Constitutional Vitals: Period Temp Pulse Resp BP Sys/Toussaint Pulse Ox Last 24 Hr 96.5 F-98.8 F 90-105 16-20 121-157/63-86 98 General appearance: no acute distress - Head Head exam: Present: normocephalic, atraumatic - Eye Eye exam: Present: EOMI Pupils: Present: DIANA - ENT ENT exam: Present: normal exam - Neck Neck exam: Present: normal inspection - Respiratory Respiratory exam: Present: clear to auscultation bilaterally, other (Midline incision clean clear and intact). Absent: rhonchi, wheezes - Cardiovascular Cardiovascular exam: Present: regular rate and rhythm. Absent: gallop, rubs, systolic murmur - GI/Abdominal GI/Abdominal exam: Present: normal bowel sounds, soft. Absent: distended, firm , guarding, tenderness, rebound - Extremities Exam Extremities exam: Present: normal inspection, other (Left leg vein harvesting site clean clear intact). Absent: calf tenderness, edema Results - Labs CBC & BMP: 08/17/16 03:20 08/17/16 03:20 Lab Results: I have reviewed the past 24 hour labs Quality Measures - VTE Contraindication to Pharmacological VTE Prophylaxis: High Risk of Bleeding Specialty Discharge - Follow Up or Referrals
[2016-08-17] MEDS: ROSUVASTATIN 20 MG TABLET PO SCH (21:20)
[2016-08-17] MEDS: metFORMIN 500 MG TABLET PO SCH (21:25)
[2016-08-18] MEDS: INSULIN LISPRO 100 UNIT/ML SUBCUT SCH ×6 (03:55→21:36)
[2016-08-18 05:56] LABS: Basophils % 0.1 % (0.0-0.8); Eosinophils % 0.2 % (0.00-10.9); Hemoglobin 10.2 GM/DL (14.0-18.0); Immature Granulocytes % 0.8 %; Immature Granulocytes Absolute 0.08 #; Lymphocytes # 1.8 10*3/uL (1.4-4.0); Lymphocytes % 17.4 % (21.2-54.2); Mean Corpuscular HGB Conc 32.9 GM/DL (32-36); Mean Corpuscular Hemoglobin 29 PG (27-34); Mean Corpuscular Volume 89.1 FL (87-102); Mean Platelet Volume 10.6 FL (9.6-12.0); Monocytes # 1.5 10*3/uL (0.11-0.8); Neutrophils # 6.8 10*3/uL (1.4-7.4); Neutrophils % 66.5 % (38.7-73.9); Platelet Count 144 T/CUMM (130-400); Red Blood Count 3.48 MC/CUMM (3.8-5.5); Red Cell Distribution Width 16.9 % (9.3-17.3); White Blood Count 10.3 T/CUMM (4-12)
[2016-08-18 06:33] LABS: Alanine Aminotransferase 19 U/L (16-61); Albumin 3.2 G/DL (3.4-5.0); Alkaline Phosphatase 48 U/L (45-117); Aspartate Amino Transferase 22 U/L (0-37); Bilirubin,Indirect 0.8 MG/DL (0.0-1.0); Blood Urea Nitrogen 36 MG/DL (7-18); Calcium 8.5 MG/DL (8.5-10.1); Glucose 123 MG/DL (74-106); Magnesium 2.5 MG/DL (1.8-2.4); Osmolality,Calculated 287.4 MOS/KG (273-304); Potassium 4.3 MMOL/L (3.5-5.1); Sodium 140 MMOL/L (136-145); Total Protein 5.5 G/DL (6.4-8.3)
--- NOTE | 2016-08-18 07:45 | XRay Report ---
XR chest 1V portable Indication: Shortness of breath. Chest one view: Since yesterday, central line, cardiomegaly, postoperative changes median sternotomy, and generally clear but hypoinflated right lung are stable. More significant opacification of left hemidiaphragm now present. Impression: Worsening obscuration left hemidiaphragm. PROCEDURE INTERPRETED AT [facility] DEPARTMENT OF RADIOLOGY Final Report Signed by: Jose Bonilla M.D.
[2016-08-18] MEDS: glipiZIDE 10 MG TABLET PO SCH (08:56)
[2016-08-18] MEDS: FERROUS SULFATE 325 MG TABLET PO SCH (08:56)
[2016-08-18] MEDS: DOCUSATE SODIUM 100 MG CAPSULE PO SCH (08:56)
[2016-08-18] MEDS: LOSARTAN 50 MG TABLET PO SCH (08:56)
[2016-08-18] MEDS: amLODIPine 10 MG TABLET PO SCH (08:56)
[2016-08-18] MEDS: PANTOPRAZOLE 40 MG TABLET PO SCH (08:57)
[2016-08-18] MEDS: CARVEDILOL 25 MG TABLET PO SCH ×2 (08:57→21:35)
[2016-08-18] MEDS: PIOGLITAZONE 45 MG TABLET PO SCH (08:57)
[2016-08-18] MEDS: hydroCHLOROthiazide 25 MG TABLET PO SCH (08:57)
[2016-08-18] MEDS: ASPIRIN EC 325 MG TABLET PO SCH (08:57)
[2016-08-18] MEDS: NAPROXEN 500 MG TABLET PO SCH (08:57)
[2016-08-18] MEDS: CHLORHEXIDINE 0.12% ORAL RINSE 60 ML BOTTLE SWISH/SPIT SCH ×2 (08:58→21:36)
--- NOTE | 2016-08-18 09:21 | Cardiothoracic Progress Note ---
Cardiothoracic Subjective Interval history: Patient is doing well. Vital signs are stable and he is breathing comfortably. He has been up ambulating with minimal assistance. Chest x-ray and blood work are all acceptable for postoperative day 3. We will continue to increase his activity according to routine postoperative protocol. Exam (Progress Note) - Constitutional Vitals: Period Temp Pulse Resp BP Sys/Toussaint Pulse Ox Last 24 Hr 97.1 F-98.4 F 83-91 18-20 113-149/63-79 94-98 Result/EKG - Labs CBC & BMP: 08/18/16 05:49 08/18/16 05:49 Labs: Laboratory Results - last 24 hr 08/14/16 08/17/16 08/17/16 12:36 11:09 15:48 WBC RBC Hgb Hct MCV MCH MCHC RDW Plt Count MPV Neut % (Auto) Lymph % (Auto) [place] % (Auto) Eos % (Auto) Baso % (Auto) Neut # (Auto) Lymph # (Auto) [place] # (Auto) Eos # (Auto) Baso # (Auto) Immature Gran % Nucleated RBC % Immature Gran # Nucleated RBCs # Sodium Potassium Chloride Carbon Dioxide Anion Gap BUN Creatinine GFR Calculation BUN/Creatinine Ratio Glucose POC Glucose 233 H 185 H Calculated Osmolality Calcium Magnesium Total Bilirubin Direct Bilirubin Indirect Bilirubin AST ALT Alkaline Phosphatase Total Creatine Kinase CK-MB (CK-2) Troponin I Total Protein Albumin Globulin Albumin/Globulin Ratio Blood Type O POSITIVE Antibody Screen Negative Crossmatch See Detail 08/17/16 08/18/16 08/18/16 19:15 05:49 05:49 WBC 10.3 RBC 3.48 L Hgb 10.2 L Hct 31.0 L MCV 89.1 MCH 29 MCHC 32.9 RDW 16.9 Plt Count 144 MPV 10.6 Neut % (Auto) 66.5 Lymph % (Auto) 17.4 L [place] % (Auto) 15.0 H Eos % (Auto) 0.2 Baso % (Auto) 0.1 Neut # (Auto) 6.8 Lymph # (Auto) 1.8 [place] # (Auto) 1.5 H Eos # (Auto) 0.0 Baso # (Auto) 0.0 Immature Gran % 0.8 Nucleated RBC % 0.0 Immature Gran # 0.08 Nucleated RBCs # 0.00 Sodium 140 Potassium 4.3 Chloride 104 Carbon Dioxide 29 Anion Gap 11.3 BUN 36 H Creatinine 1.40 H GFR Calculation 82 BUN/Creatinine Ratio 25.00 H Glucose 123 H POC Glucose 228 H Calculated Osmolality 287.4 Calcium 8.5 Magnesium 2.5 H Total Bilirubin 1.00 Direct Bilirubin 0.20 Indirect Bilirubin 0.8 AST 22 ALT 19 Alkaline Phosphatase 48 Total Creatine Kinase 150 D CK-MB (CK-2) 1.8 D Troponin I 2.790 H D Total Protein 5.5 L Albumin 3.2 L Globulin 2.3 Albumin/Globulin Ratio 1.3 Blood Type Antibody Screen Crossmatch 08/18/16 08:06 WBC RBC Hgb Hct MCV MCH MCHC RDW Plt Count MPV Neut % (Auto) Lymph % (Auto) [place] % (Auto) Eos % (Auto) Baso % (Auto) Neut # (Auto) Lymph # (Auto) [place] # (Auto) Eos # (Auto) Baso # (Auto) Immature Gran % Nucleated RBC % Immature Gran # Nucleated RBCs # Sodium Potassium Chloride Carbon Dioxide Anion Gap BUN Creatinine GFR Calculation BUN/Creatinine Ratio Glucose POC Glucose 136 H Calculated Osmolality Calcium Magnesium Total Bilirubin Direct Bilirubin Indirect Bilirubin AST ALT Alkaline Phosphatase Total Creatine Kinase CK-MB (CK-2) Troponin I Total Protein Albumin Globulin Albumin/Globulin Ratio Blood Type Antibody Screen Crossmatch Quality Measures - VTE Contraindication to Pharmacological VTE Prophylaxis: High Risk of Bleeding Specialty Discharge - Follow Up or Referrals
[2016-08-18] MEDS ORDERED: INSULIN LISPRO 100 UNIT/ML SUBCUT ONE (13:01)
--- NOTE | 2016-08-18 16:27 | Hospitalist Progress Note ---
Assessment and Plan - Time spent with patient Time spent with patient: Greater than 30 minutes (1) Coronary artery disease Status: Acute Assessment and plan: Status post CABG defer to primary. Current Visit: Yes (2) Diabetes Status: Acute Assessment and plan: Continue current management. Current Visit: Yes Qualifiers: Diabetes mellitus type: type 2 (3) Hypertension Status: Acute Assessment and plan: Continue current management. Current Visit: Yes (4) Dyslipidemia Status: Chronic Assessment and plan: Continue current management. Current Visit: Yes Hospitalist: Subjective Interval history: No complaints, no overnight events Exam - Constitutional Vitals: Period Temp Pulse Resp BP Sys/Toussaint Pulse Ox Last 24 Hr 97.1 F-98.4 F 83-91 12-20 113-149/71-79 94-97 General appearance: no acute distress - Head Head exam: Present: normocephalic, atraumatic - Eye Eye exam: Present: EOMI Pupils: Present: DIANA - ENT ENT exam: Present: normal exam - Neck Neck exam: Present: normal inspection - Respiratory Respiratory exam: Present: clear to auscultation bilaterally. Absent: rhonchi, wheezes - Cardiovascular Cardiovascular exam: Present: regular rate and rhythm. Absent: gallop, rubs, systolic murmur - GI/Abdominal GI/Abdominal exam: Present: normal bowel sounds, soft. Absent: distended, firm , guarding, tenderness, rebound - Extremities Exam Extremities exam: Present: normal inspection. Absent: calf tenderness, edema Results - Labs CBC & BMP: 08/18/16 05:49 08/18/16 05:49 Lab Results: I have reviewed the past 24 hour labs Quality Measures - VTE Contraindication to Pharmacological VTE Prophylaxis: High Risk of Bleeding Specialty Discharge - Follow Up or Referrals
[2016-08-18] MEDS: ROSUVASTATIN 20 MG TABLET PO SCH (21:35)
[2016-08-18] MEDS: metFORMIN 500 MG TABLET PO SCH (21:35)
[2016-08-19 06:14] LABS: Calcium 8.4 MG/DL (8.5-10.1); Osmolality,Calculated 289.5 MOS/KG (273-304); Potassium 3.9 MMOL/L (3.5-5.1)
--- NOTE | 2016-08-19 08:27 | Cardiothoracic Progress Note ---
Cardiothoracic Subjective Interval history: Patient is doing well. Vital signs are stable and he is breathing comfortably. He is ambulating without assistance. I believe he will be ready for discharge in the morning. Exam (Progress Note) - Constitutional Vitals: Period Temp Pulse Resp BP Sys/Toussaint Pulse Ox Last 24 Hr 97.5 F-98.8 F 83-86 12-20 114-145/61-84 96-100 Result/EKG - Labs CBC & BMP: 08/18/16 05:49 08/19/16 04:17 Labs: Laboratory Results - last 24 hr 08/18/16 08/18/16 08/18/16 12:03 16:06 20:31 Sodium Potassium Chloride Carbon Dioxide Anion Gap BUN Creatinine GFR Calculation BUN/Creatinine Ratio Glucose POC Glucose 241 H 206 H 154 H Calculated Osmolality Calcium 08/19/16 04:17 Sodium 139 Potassium 3.9 Chloride 103 Carbon Dioxide 28 Anion Gap 11.9 BUN 33 H Creatinine 1.40 H GFR Calculation 82 BUN/Creatinine Ratio 23.00 H Glucose 211 H POC Glucose Calculated Osmolality 289.5 Calcium 8.4 L Quality Measures - VTE Contraindication to Pharmacological VTE Prophylaxis: High Risk of Bleeding Specialty Discharge - Follow Up or Referrals
[2016-08-19] MEDS: INSULIN LISPRO 100 UNIT/ML SUBCUT SCH ×4 (09:02→21:54)
[2016-08-19] MEDS: PIOGLITAZONE 45 MG TABLET PO SCH (09:03)
[2016-08-19] MEDS: glipiZIDE 10 MG TABLET PO SCH (09:03)
[2016-08-19] MEDS: FERROUS SULFATE 325 MG TABLET PO SCH (09:03)
[2016-08-19] MEDS: LOSARTAN 50 MG TABLET PO SCH (09:03)
[2016-08-19] MEDS: NAPROXEN 500 MG TABLET PO SCH (09:03)
[2016-08-19] MEDS: ASPIRIN EC 325 MG TABLET PO SCH (09:04)
[2016-08-19] MEDS: DOCUSATE SODIUM 100 MG CAPSULE PO SCH (09:04)
[2016-08-19] MEDS: CARVEDILOL 25 MG TABLET PO SCH ×2 (09:04→21:50)
[2016-08-19] MEDS: PANTOPRAZOLE 40 MG TABLET PO SCH (09:04)
[2016-08-19] MEDS: hydroCHLOROthiazide 25 MG TABLET PO SCH (09:04)
[2016-08-19] MEDS: amLODIPine 10 MG TABLET PO SCH (09:04)
[2016-08-19] MEDS: CHLORHEXIDINE 0.12% ORAL RINSE 60 ML BOTTLE SWISH/SPIT SCH ×2 (09:05→21:50)
--- NOTE | 2016-08-19 16:23 | Hospitalist Progress Note ---
Assessment and Plan - Time spent with patient Time spent with patient: Greater than 30 minutes (1) Coronary artery disease Status: Acute Assessment and plan: Status post CABG defer to primary. Current Visit: Yes (2) Diabetes Status: Acute Assessment and plan: Continue current management. Current Visit: Yes Qualifiers: Diabetes mellitus type: type 2 (3) Hypertension Status: Acute Assessment and plan: Continue current management. Current Visit: Yes (4) Dyslipidemia Status: Chronic Assessment and plan: Continue current management. Current Visit: Yes Hospitalist: Subjective Interval history: No complaints or overnight events. Exam - Constitutional Vitals: Period Temp Pulse Resp BP Sys/Toussaint Pulse Ox Last 24 Hr 96.2 F-98.8 F 83-86 16-20 114-145/56-84 96-100 General appearance: no acute distress - Head Head exam: Present: normocephalic, atraumatic - Eye Eye exam: Present: EOMI Pupils: Present: DIANA - ENT ENT exam: Present: normal exam - Neck Neck exam: Present: normal inspection - Respiratory Respiratory exam: Present: clear to auscultation bilaterally, other (Closed midline surgical incision is clean clear and intact). Absent: rhonchi, wheezes - Cardiovascular Cardiovascular exam: Present: regular rate and rhythm. Absent: gallop, rubs, systolic murmur - GI/Abdominal GI/Abdominal exam: Present: normal bowel sounds, soft. Absent: distended, firm , guarding, tenderness, rebound - Extremities Exam Extremities exam: Present: normal inspection. Absent: calf tenderness, edema Results - Labs CBC & BMP: 08/18/16 05:49 08/19/16 04:17 Lab Results: I have reviewed the past 24 hour labs Quality Measures - VTE Contraindication to Pharmacological VTE Prophylaxis: High Risk of Bleeding Specialty Discharge - Follow Up or Referrals
[2016-08-19] MEDS: metFORMIN 500 MG TABLET PO SCH (21:50)
[2016-08-19] MEDS: ROSUVASTATIN 20 MG TABLET PO SCH (21:50)
[2016-08-20 06:06] LABS: Basophils % 0.1 % (0.0-0.8); Eosinophils # 0.2 10*3/uL (0.0-0.87); Eosinophils % 3.3 % (0.00-10.9); Hematocrit 29.8 VOL% (42.0-52.0); Immature Granulocytes % 0.9 %; Immature Granulocytes Absolute 0.06 #; Lymphocytes # 2.1 10*3/uL (1.4-4.0); Lymphocytes % 29.5 % (21.2-54.2); Mean Corpuscular HGB Conc 33.6 GM/DL (32-36); Mean Corpuscular Hemoglobin 30 PG (27-34); Mean Corpuscular Volume 88.2 FL (87-102); Mean Platelet Volume 10.8 FL (9.6-12.0); Monocytes % 13.6 % (1.7-12.7); Neutrophils # 3.7 10*3/uL (1.4-7.4); Neutrophils % 52.6 % (38.7-73.9); Platelet Count 193 T/CUMM (130-400); Red Blood Count 3.38 MC/CUMM (3.8-5.5); Red Cell Distribution Width 16.1 % (9.3-17.3)
[2016-08-20 06:57] LABS: Alanine Aminotransferase 20 U/L (16-61); Alkaline Phosphatase 52 U/L (45-117); Aspartate Amino Transferase 17 U/L (0-37); Bilirubin,Indirect 0.5 MG/DL (0.0-1.0); Blood Urea Nitrogen 27 MG/DL (7-18); Calcium 8.3 MG/DL (8.5-10.1); Glucose 159 MG/DL (74-106); Magnesium 2.7 MG/DL (1.8-2.4); Osmolality,Calculated 288.3 MOS/KG (273-304); Sodium 141 MMOL/L (136-145); Total Protein 5.6 G/DL (6.4-8.3)
[2016-08-20 07:40] VITALS: BP 133/67
[2016-08-20] MEDS: LOSARTAN 50 MG TABLET PO SCH (09:16)
[2016-08-20] MEDS: PIOGLITAZONE 45 MG TABLET PO SCH (09:16)
[2016-08-20] MEDS: PANTOPRAZOLE 40 MG TABLET PO SCH (09:17)
[2016-08-20] MEDS: NAPROXEN 500 MG TABLET PO SCH (09:18)
[2016-08-20] MEDS: DOCUSATE SODIUM 100 MG CAPSULE PO SCH (09:18)
[2016-08-20] MEDS: amLODIPine 10 MG TABLET PO SCH (09:18)
[2016-08-20] MEDS: glipiZIDE 10 MG TABLET PO SCH (09:19)
[2016-08-20] MEDS: CARVEDILOL 25 MG TABLET PO SCH (09:20)
[2016-08-20] MEDS: FERROUS SULFATE 325 MG TABLET PO SCH (09:20)
[2016-08-20] MEDS: hydroCHLOROthiazide 25 MG TABLET PO SCH (09:20)
[2016-08-20] MEDS: ASPIRIN EC 325 MG TABLET PO SCH (09:20)
[2016-08-20] MEDS: INSULIN LISPRO 100 UNIT/ML SUBCUT SCH (09:22)
[2016-08-20] MEDS: CHLORHEXIDINE 0.12% ORAL RINSE 60 ML BOTTLE SWISH/SPIT SCH (09:26)
--- NOTE | 2016-08-20 09:27 | Discharge Summary ---
Hospital Course - Hospital Course Hospital Course: History of present illness: Patient is a 71-year-old man who has been followed by Dr. Page and has been found to have increasing symptoms of chest discomfort which have been brought about by exercise. Where the suspicion that the pain represented ischemic cardiac pain the patient was advised to have cardiac catheterization which demonstrated severe two-vessel coronary disease and the patient was advised to have bypass surgery. He does have a history of diabetes hypertension hyperlipidemia and a family history of coronary disease. Past medical history review of systems social history and family history are documented in his admission now. Hospital course: Patient was taken to surgery and underwent two-vessel bypass grafting without incident. Postoperative course was entirely uncomplicated and he was discharged home on the fifth postoperative day. Discharge medications are listed below and the patient is to return for follow-up in 1 month. Specialty Discharge - Follow Up or Referrals Follow up with: Timothy Anderson MD [Physician] - 1 Month Discharge Plan - Discharge Data Condition at Discharge: Stable Discharge Diet: advance to your usual diet Activity: resume usual activities as tolerated Hygiene: no restrictions Weight Bearing at Discharge: full weight bearing Driving: not until seen by doctor - Discharge Medications New Rosuvastatin [Crestor] 20 mg PO BEDTIME tablet oxyCODONE/ACETAMINOPHEN 5-325 [Percocet 5-325] 1 tablet PO Q4H PRN #0 tablet PRN Reason: Pain Mild (1-3) Aspirin EC Tab 325 mg PO DAILY tablet Carvedilol [Coreg] 25 mg PO BID #60 tablet Ergocalciferol [Drisdol] 50,000 unit PO Fr@0900 capsule Losartan [Cozaar] 100 mg PO DAILY tablet Naproxen [Naprosyn Tab] 500 mg PO DAILY tablet Pioglitazone [Actos] 45 mg PO DAILY tablet amLODIPine [Norvasc] 10 mg PO DAILY tablet glipiZIDE [Glucotrol] 20 mg PO DAILY tablet hydroCHLOROthiazide [Hydrochlorothiazide] 25 mg PO DAILY tablet Continue Metformin HCl 2 tablet PO BEDTIME glipiZIDE [Glucotrol] 20 mg PO DAILY Naproxen Sodium [Aleve] 2 tablet PO DAILY Rosuvastatin [Crestor] 20 mg PO BEDTIME Pioglitazone [Actos] 45 mg PO DAILY hydroCHLOROthiazide [Hydrochlorothiazide] 25 mg PO DAILY Losartan Potassium [Cozaar] 100 mg PO DAILY Aspirin/Calcium Carbonate/Mag [Aspirin Buffered 325 mg Tab] 325 mg PO DAILY amLODIPine [Norvasc] 10 mg PO DAILY Cholecalciferol (Vitamin D3) [Vitamin D3] 1 capsule PO DIRECTED Changed Carvedilol 25 mg PO BID #60 - Follow Up or Referral - Forms/Instructions Instructions: Heart Healthy Diet (GEN), Cigarette Smoking and Your Health (GEN) , Coronary Artery Bypass Graft, 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 (GEN), Sternal Precautions (GEN) Exam - Constitutional Vitals: Period Temp Pulse Resp BP Sys/Toussaint Pulse Ox Last 24 Hr 96.2 F-98.0 F 52-91 16-20 114-145/56-88 95-100 Discharge Results Procedures and tests throughout hospitalization: Pending Orders 08/14/16 12:36 Fresh Frozen Plasma Routine Red Blood Cells Leuko Red Routine Single Donor Platelets Routine Type and Screen Routine 08/20/16 04:00 XR chest 2V IN AM 08/21/16 04:00 XR chest 2V IN AM Bilirubin Profile Adult IN AM Comp Blood Count Auto Diff IN AM Comprehensive Metabolic Panel IN AM Hepatic (Liver) Panel IN AM Magnesium IN AM Troponin,CKMB & Ck Total IN AM Labs on day of discharge: Labs from last 24 hours 08/20/16 08/20/16 08/20/16 07:12 05:03 05:03 WBC 7.0 D RBC 3.38 L Hgb 10.0 L Hct 29.8 L MCV 88.2 MCH 30 MCHC 33.6 RDW 16.1 Plt Count 193 D MPV 10.8 Neut % (Auto) 52.6 Lymph % (Auto) 29.5 [place] % (Auto) 13.6 H Eos % (Auto) 3.3 Baso % (Auto) 0.1 Neut # (Auto) 3.7 Lymph # (Auto) 2.1 [place] # (Auto) 1.0 H Eos # (Auto) 0.2 Baso # (Auto) 0.0 Immature Gran % 0.9 Nucleated RBC % 0.0 Immature Gran # 0.06 Nucleated RBCs # 0.00 Sodium 141 Potassium 4.0 Chloride 103 Carbon Dioxide 28 Anion Gap 14.0 BUN 27 H Creatinine 1.20 GFR Calculation 99 BUN/Creatinine Ratio 22.00 H Glucose 159 H POC Glucose 174 H Calculated Osmolality 288.3 Calcium 8.3 L Magnesium 2.7 H Total Bilirubin 0.70 Direct Bilirubin 0.20 Indirect Bilirubin 0.5 AST 17 ALT 20 Alkaline Phosphatase 52 Total Creatine Kinase 59 D CK-MB (CK-2) 1.2 Troponin I 1.290 H D Total Protein 5.6 L Albumin 3.0 L Globulin 2.6 Albumin/Globulin Ratio 1.1 08/19/16 08/19/16 08/19/16 21:52 16:16 12:20 WBC RBC Hgb Hct MCV MCH MCHC RDW Plt Count MPV Neut % (Auto) Lymph % (Auto) [place] % (Auto) Eos % (Auto) Baso % (Auto) Neut # (Auto) Lymph # (Auto) [place] # (Auto) Eos # (Auto) Baso # (Auto) Immature Gran % Nucleated RBC % Immature Gran # Nucleated RBCs # Sodium Potassium Chloride Carbon Dioxide Anion Gap BUN Creatinine GFR Calculation BUN/Creatinine Ratio Glucose POC Glucose 167 H 192 H 157 H Calculated Osmolality Calcium Magnesium Total Bilirubin Direct Bilirubin Indirect Bilirubin AST ALT Alkaline Phosphatase Total Creatine Kinase CK-MB (CK-2) Troponin I Total Protein Albumin Globulin Albumin/Globulin Ratio 08/19/16 08:07 WBC RBC Hgb Hct MCV MCH MCHC RDW Plt Count MPV Neut % (Auto) Lymph % (Auto) [place] % (Auto) Eos % (Auto) Baso % (Auto) Neut # (Auto) Lymph # (Auto) [place] # (Auto) Eos # (Auto) Baso # (Auto) Immature Gran % Nucleated RBC % Immature Gran # Nucleated RBCs # Sodium Potassium Chloride Carbon Dioxide Anion Gap BUN Creatinine GFR Calculation BUN/Creatinine Ratio Glucose POC Glucose 234 H Calculated Osmolality Calcium Magnesium Total Bilirubin Direct Bilirubin Indirect Bilirubin AST ALT Alkaline Phosphatase Total Creatine Kinase CK-MB (CK-2) Troponin I Total Protein Albumin Globulin Albumin/Globulin Ratio DS: Provider Date of admission: 08/14/16 09:42 Primary care physician: Vonda Martins Attending physician on admission: Timothy Anderson MD Consults: 08/14/16 09:42 Consult to Dietitian [CONS] Routine Reason for Dietitian: Other Consult Comment: low salt, low cholesterol, diet 08/16/16 09:03 Consult to Cardiac Rehabilitation [CONS] Routine Reason for Cardiac Rehabilitation: Other Consult Comment: Post CABG/heart surgery Consult to Diabetes Center, Educator [CONS] Routine Reason for Sql Consultant: Diabetes Education Initial Insulin Education Consult Comment: insulin education Consult to Dietitian [CONS] Routine Reason for Dietitian: Dietary Consult Consult Comment: Cardiac, low salt, low cholesterol diet Consult to Physical Therapy [CONS] Routine Reason for Physical Therapy: Other Consult Comment: CV Rehab Consult to Physician [CONS] Routine Comment: Management of diabetes Consulting Provider: Consult to Specialist Group: Hospitalist 08/16/16 09:33 Consult to Pharmacy [CONS] Routine Reason for Pharmacy Consult: Adjust Meds Renal Funct Discharging clinician: Timothy Anderson MD Expected date of discharge: 08/20/16
--- NOTE | 2016-08-20 09:30 | XRay Report ---
XR chest 2V Date: 08/20/2016 4:00 AM History: Shortness of breath Comparison: 08/18/2016 Technique: PA and lateral chest Findings: Status post median sternotomy with persistent cardiomegaly and stable venous catheter. Residual diffuse parenchymal findings at the left lung base with minimally larger left pleural effusion and more stable small right pleural effusion. Stable mediastinum and osseous structures. Impression: Minimal increase in the size of left pleural effusion. Otherwise the chest appears fairly stable in appearance. PROCEDURE INTERPRETED AT [facility] DEPARTMENT OF RADIOLOGY Final Report Signed by: Dr. Bhavya Vick
== END 2016-08-20 12:23 | disposition home or self-care (01) | DRG 236 ==
LOC: N.ICU 10:09 → N.CVR 08-15 07:31 → N.TELES 08-16 11:46